=== PATIENT | female | born 1990 | race Caucasian/White ===

== ENCOUNTER 2020-07-20 09:41 | Outpatient (CLI) | payer MEDICAID, SELFPAY ==
--- NOTE | 2020-07-20 09:47 | NM_ITS ---
WS: [id number] NUCLEAR MEDICINE HIDA SCAN CLINICAL INFORMATION: ABD PAIN TECHNIQUE: Following intravenous administration of 7.6 mCi of technetium 99m mebrofenin, images of th e abdomen were obtained over the course of 60 minutes. Next, gallbladder ejection fraction was determ ined by obtaining preprandial and one-hour postprandial images of the gallbladder following oral ivett stion of Ensure. COMPARISON: None. FINDINGS: Normal hepatic uptake at 5 minutes. Gallbladder is visualized by 15 minutes. No evidence of acute cho lecystitis. Normal bile duct and small bowel activity. Normal hepatic excretion. No evidence of kailey docholithiasis. Gallbladder ejection fraction 75% within normal limits. No evidence of chronic cholecystitis. NM/NM hepatobiliary w phar* [id number] IMPRESSION: 1. No evidence of acute or chronic cholecystitis. 2. Normal gallbladder ejection fraction 75% within normal limits.
== END 2020-07-20 09:42 | disposition home or self-care (01) ==
LOC: NM 09:43
PROVIDERS: PCP Nurse Practitioner Family; Visit Provider Nurse Practitioner Family
DX: R10.9 Unspecified abdominal pain (principal)
CPT/HCPCS: 78227; A9537

== ENCOUNTER → 2020-09-05 09:20 | Outpatient (BNVA) | payer MEDICAID, SELFPAY | PROVIDERS: PCP Nurse Practitioner Family; Visit Provider Psychiatry & Neurology Psychiatry | DX: F41.1 Generalized anxiety disorder (principal) | CPT/HCPCS: 90792 ==

== ENCOUNTER → 2020-09-18 10:29 | Outpatient (BNVA) | payer MEDICAID, SELFPAY | PROVIDERS: PCP Nurse Practitioner Family; Visit Provider Social Worker | DX: F41.1 Generalized anxiety disorder (principal) | CPT/HCPCS: 90834 ==

== ENCOUNTER → 2020-10-02 09:45 | Outpatient (BNVA) | payer MEDICAID, SELFPAY | PROVIDERS: PCP Nurse Practitioner Family; Visit Provider Social Worker | DX: F41.1 Generalized anxiety disorder (principal) | CPT/HCPCS: 90834 ==

== ENCOUNTER → 2020-10-24 09:06 | Outpatient (BNVA) | payer MEDICAID, SELFPAY | PROVIDERS: PCP Nurse Practitioner Family; Visit Provider Psychiatry & Neurology Psychiatry | DX: F41.1 Generalized anxiety disorder (principal) | CPT/HCPCS: 99214 ==

== ENCOUNTER → 2020-12-08 08:23 | Outpatient (BNVA) | payer MEDICAID, SELFPAY | PROVIDERS: PCP Nurse Practitioner Family; Visit Provider Social Worker | DX: F41.1 Generalized anxiety disorder (principal) | CPT/HCPCS: 90834 ==

== ENCOUNTER → 2020-12-21 08:21 | Outpatient (BNVA) | payer MEDICAID, SELFPAY | PROVIDERS: PCP Nurse Practitioner Family; Visit Provider Social Worker | DX: F41.1 Generalized anxiety disorder (principal) | CPT/HCPCS: 90834 ==

== ENCOUNTER → 2021-01-04 10:32 | Outpatient (BNVA) | payer MEDICAID, SELFPAY | PROVIDERS: PCP Nurse Practitioner Family; Visit Provider Social Worker | DX: F41.1 Generalized anxiety disorder (principal) | CPT/HCPCS: 90834 ==

== ENCOUNTER → 2021-01-05 10:29 | Outpatient (BNVA) | payer MEDICAID, SELFPAY | PROVIDERS: PCP Nurse Practitioner Family; Visit Provider Psychiatry & Neurology Psychiatry | DX: F41.1 Generalized anxiety disorder (principal) | CPT/HCPCS: 99214 ==

== ENCOUNTER → 2021-05-17 07:15 | Outpatient (BNVA) | payer MEDICAID, SELFPAY | PROVIDERS: PCP Nurse Practitioner Family; Visit Provider Social Worker | DX: F41.1 Generalized anxiety disorder (principal) | CPT/HCPCS: 90834 ==

== ENCOUNTER → 2021-06-04 07:25 | Outpatient (BNVA) | payer MEDICAID, SELFPAY | PROVIDERS: PCP Nurse Practitioner Family; Visit Provider Social Worker | DX: F41.1 Generalized anxiety disorder (principal) | CPT/HCPCS: 90834 ==

== ENCOUNTER → 2021-06-11 08:10 | Outpatient (BNVA) | payer MEDICAID, SELFPAY | PROVIDERS: PCP Nurse Practitioner Family; Visit Provider Social Worker | DX: F41.1 Generalized anxiety disorder (principal) | CPT/HCPCS: 90834 ==

== ENCOUNTER → 2021-07-13 14:42 | Outpatient (BNVA) | payer MEDICAID, SELFPAY | PROVIDERS: PCP Nurse Practitioner Family; Visit Provider Counselor Professional | DX: F41.1 Generalized anxiety disorder (principal) | CPT/HCPCS: 90834 ==

== ENCOUNTER → 2021-08-20 07:52 | Outpatient (BNVA) | payer MEDICAID, SELFPAY | PROVIDERS: PCP Nurse Practitioner Family; Visit Provider Social Worker | DX: F41.1 Generalized anxiety disorder (principal) | CPT/HCPCS: 90834 ==

== ENCOUNTER 2021-08-20 10:29 | Emergency (ER) | payer MEDICAID, SELFPAY ==
[2021-08-20 10:49] VITALS: BP 128/81; PULSE 87; RESP 18; TEMP 37.3; O2SAT 97; BMI 34.4
--- NOTE | 2021-08-20 11:29 | XRR_ITS ---
PROCEDURE INFORMATION: Exam: XR Left Shoulder Exam date and time: 08/20/2021 11:58 AM Age: 31 years old Clinical indication: Pain and injury or trauma; Fall; Blunt trauma (contusions or hematomas); Left; Injury details: Fell down stairs. PT has pain all around the lt shoulder joint; Additional info: Injury/trauma; Pain TECHNIQUE: Imaging protocol: XR Left shoulder. Views: 2 or more views. COMPARISON: No relevant prior studies available. FINDINGS: Bones/joints: Negative for acute bony abnormality. Soft tissues: Normal. XR/XR shoulder LT min 2V* [id number] IMPRESSION: No acute findings.
--- NOTE | 2021-08-20 11:29 | ED_ITS ---
HPI - Fall General: Chief Complaint: Fall Stated Complaint: fall, left shoulder pain and face Time Seen by Provider: 08/20/21 11:13 Source: patient Mode of arrival: ambulatory Limitations: no limitations History of Present Illness: Patient is a 31-year-old female who presents to ED today with complaints of left shoulder pain. Patient states her 4 dogs were chasing a squirrel on one of her birdfeeders and states she got tripped up and fell directly onto the left shoulder. She does report striking her head and reports unknown LOC but states she feels completely normal now. She does not complain of a headache, dizziness, lightheadedness, visual changes, nausea/vomiting. She has no other physical complaints currently apart from the left shoulder pain. MD complaint: fall Onset (ago): hour(s) Fall from: standing Fall witnessed: no Place fall occurred: home Loss of consciousness: Unsure Prolonged down time: no Symptoms prior to fall: none Context: tripped/slipped Location of injury - extremities: Left: shoulder Severity: moderate Associated symptoms-after fall: Reports no associated symptoms; Denies abdominal pain, chest pain, confusion, difficulty walking, headache(s), lightheadedness or neck pain Review of Systems Eyes: Denies: change in vision, blurry vision, blind spots, photophobia, floaters or seeing flashes Card: Denies: chest pain, palpitations, lightheadedness, syncope or pre- syncope Resp: Denies: dyspnea GI: Denies: abdominal pain, nausea or vomiting Musc: Reports: joint pain (L shoulder); Denies: neck pain, back pain, extremity pain, extremity swelling, joint swelling, joint redness or joint warmth Neuro: Denies: headache(s), numbness in extremities, weakness in extremities, sensory changes, difficulty walking, dizziness, confusion, behavioral changes, Slurred speech present, difficulty communicating thoughts or seizure-like activity PFS ED PFSH: Medical History MARTA (generalized anxiety disorder) Social History Smoking and tobacco status: never smoked Alcohol intake: never Current gender identity: Female Physical Exam Const: COMMON NORMALS: no acute distress, patient oriented x3, no limitations and alert GENERAL APPEARANCE: cooperative NUTRITIONAL APPEARANCE: overweight ORIENTATION/CONSCIOUSNESS: Yes awake, Yes oriented to person, Yes oriented to place and Yes oriented to time HENMT: COMMON NORMALS: normocephalic and atraumatic HEAD & SCALP: normal to inspection, normocephalic and atraumatic FACE & SINUS: normal facial exam Neck/C-Spine: COMMON NORMALS: full ROM CERVICAL SPINE: No pain with cervical ROM, No Cervical spine tenderness, No step off deformity and No Paracervical muscle tenderness Chest: COMMONS NORMALS: normal inspection of the chest and normal palpation of entire chest wall Resp: COMMON NORMALS: normal respiratory effort and clear to auscultation bilaterally AUSCULTATION: clear to auscultation bilaterally Back/Pelvis: COMMON NORMALS: thoracic and lumbar spine normal to inspection, no thoracic nor lumbar tenderness and thoraco-lumbar ROM normal Extremity: GENERAL: Yes normal exam except as noted LEFT UPPER EXTREMITY: Yes shoulder joint Left shoulder joint: Yes palpation (TTP of anterior glenohumeral shoulder ), Yes ROM (limited secondary to pain) and Yes neurovascular exam (normal) Neuro: RICK COMA SCALE: document GCS findings Rick coma scale eye opening: Spontaneous [place] coma scale verbal response: Orientated [place] coma scale motor response: Obey commands Rick coma scale total score: 15 COMMON NORMALS: patient oriented x3, moves all extremities, no focal motor deficits and no sensory deficits noted SENSORIUM/ORIENTATION: Yes alert, Yes oriented to person, Yes oriented to place and Yes oriented to time Skin: TRAUMA: no lacerations or abrasions Course Vital Signs: Vital signs: Vital Signs Temperature 99.2 F 08/20/21 10:49 Pulse Rate 87 08/20/21 10:49 Respiratory Rate 18 08/20/21 10:49 Blood Pressure 128/81 08/20/21 10:49 Pulse Oximetry 97 08/20/21 10:49 MDM - Fall Medical Decision Making XRs negative. Will treat with sling x 48 hours, passive ROM, NSAIDS, steroids and follow up with PCP in 1-2 weeks if pain persists. Discharge Plan Discharge Patient Disposition: Home Clinical Impression: Injury of left shoulder Qualifiers: Encounter type: initial encounter Qualified Code(s): S49.92XA - Unspecified injury of left shoulder and upper arm, initial encounter Condition: Stable Prescriptions: New ibuprofen 800 mg tablet 800 mg PO Q8H PRN (Reason: pain) Qty: 20 0RF Medrol (Raman) 4 mg tablets,dose pack See Rx Instructions .ROUTE .COMPLEX Qty: 21 0RF Rx Instructions: orally per package directions Discontinued prednisone 20 mg tablet 40 mg PO DAILY 5 Days Qty: 10 0RF No Action clonidine HCl 0.1 mg tablet 0.1 mg PO .qhs 30 Days Qty: 30 3RF azithromycin [Zithromax Z-Raman] 250 mg tablet See Rx Instructions PO .COMPLEX Qty: 6 0RF Rx Instructions: take 500 mg today (day 1), then 250 mg for 4 days (days 2-5) PO Discharge Orders: Discharge ED (Routine); Ordered 08/20/21 Ordered By: Marva Campos Referrals: Rosa Hudson [Primary Care Provider] - Patient Instructions: Shoulder Sprain (ED) Stand Alone Forms: Work/School Release Coding Level of Care Code ED Screen Printing Machine Loader Unloader for Dillon Fwd Exam Comprehensive
== END 2021-08-20 12:30 | disposition home or self-care (01) ==
PROVIDERS: Emergency Provider Physician Assistant; PCP Nurse Practitioner Family
DX: S49.92XA Unspecified injury of left shoulder and upper arm, initial encounter (principal); W01.0XXA Fall on same level from slipping, tripping and stumbling without subsequent striking against object, initial encounter
CPT/HCPCS: 73030; 90834; 99282

== ENCOUNTER → 2021-09-04 08:09 | Outpatient (BNVA) | payer MEDICAID, SELFPAY | PROVIDERS: PCP Nurse Practitioner Family; Visit Provider Social Worker | DX: F41.1 Generalized anxiety disorder (principal) | CPT/HCPCS: 90834 ==

== ENCOUNTER → 2021-09-11 07:15 | Outpatient (BNVA) | payer MEDICAID, SELFPAY | PROVIDERS: PCP Nurse Practitioner Family; Visit Provider Social Worker | DX: F41.1 Generalized anxiety disorder (principal) | CPT/HCPCS: 90834 ==

== ENCOUNTER → 2021-09-27 07:33 | Outpatient (BNVA) | payer MEDICAID, SELFPAY | PROVIDERS: PCP Nurse Practitioner Family; Visit Provider Social Worker | DX: F41.1 Generalized anxiety disorder (principal); F33.9 Major depressive disorder, recurrent, unspecified | CPT/HCPCS: 90791 ==

== ENCOUNTER → 2021-10-03 11:50 | Outpatient (BNVA) | payer MEDICAID, SELFPAY | PROVIDERS: PCP Nurse Practitioner Family; Visit Provider Counselor Professional | DX: F41.1 Generalized anxiety disorder (principal) | CPT/HCPCS: 90847 ==

== ENCOUNTER → 2021-10-17 08:00 | Outpatient (BNVA) | payer MEDICAID, SELFPAY | PROVIDERS: PCP Nurse Practitioner Family; Visit Provider Social Worker | DX: F41.1 Generalized anxiety disorder (principal) | CPT/HCPCS: 90837; 90834 ==

== ENCOUNTER → 2021-10-29 07:34 | Outpatient (BNVA) | payer MEDICAID, SELFPAY | PROVIDERS: PCP Nurse Practitioner Family; Visit Provider Social Worker | DX: F41.1 Generalized anxiety disorder (principal) | CPT/HCPCS: 90837; 90834 ==

== ENCOUNTER → 2021-10-30 17:10 | Outpatient (BNVA) | payer MEDICAID, SELFPAY | PROVIDERS: PCP Nurse Practitioner Family; Visit Provider Psychiatry & Neurology Psychiatry | DX: F41.1 Generalized anxiety disorder (principal); G47.00 Insomnia, unspecified | CPT/HCPCS: 99214 ==

== ENCOUNTER 2022-04-17 18:19 | Emergency (ER) | payer MEDICAID, SELFPAY ==
[2022-04-17 18:51] VITALS: BMI 34.0
[2022-04-17 18:54] VITALS: BP 114/79; PULSE 82; RESP 16; TEMP 36.8; O2SAT 97
[2022-04-17 19:05] LABS: Add Urine Microscopic? YES; Bilirubin Urine Neg (Negative); Blood Urine 3+ (Negative); Glucose Urine UA Norm (Normal); Ketones Urine Negative (Negative); Leukocyte Esterase Urine Negative (Negative); Nitrate Urine Negative (Negative); Protein Urine Neg (Negative); Specific Gravity, Urine 1.005 (1.005-1.030); Urine Appearance Hazy (CLEAR); Urine Color Light Yellow (Yellow); Urobilinogen Urine Neg (Negative); pH Urine 6.5 (5-7)
[2022-04-17 19:09] LABS: Add Urine Culture? No; RBC Urine 0-4 /hpf (0-2); Squamous Epithelial Cell Urine RARE /hpf (0-5)
== END 2022-04-17 19:30 | disposition left against medical advice (07) ==
PROVIDERS: Emergency Medicine; Emergency Provider Family Medicine; PCP Family Medicine
DX: Z53.21 Procedure and treatment not carried out due to patient leaving prior to being seen by health care provider (principal)
CPT/HCPCS: 81001

== ENCOUNTER → 2022-11-21 11:49 | Outpatient (BNVA) | payer OTHER, SELFPAY | PROVIDERS: PCP Family Medicine; Visit Provider Nurse Practitioner | DX: F41.1 Generalized anxiety disorder (principal) | CPT/HCPCS: 80061; 83036 ==

== ENCOUNTER → 2023-02-11 10:39 | Outpatient (BNVA) | payer MEDICAID, SELFPAY ==
[2022-12-11 16:44] VITALS: BP 140/90; BMI 35.1
== END ==
PROVIDERS: PCP Family Medicine; Referring Provider Family Medicine; Visit Provider Surgery
DX: K64.9 Unspecified hemorrhoids (principal)
CPT/HCPCS: 99203

== ENCOUNTER 2023-04-02 06:14 | Day surgery (SDC) | payer MEDICAID, SELFPAY ==
[2022-12-11 16:44] VITALS: BP 140/90; BMI 35.1
[2023-04-02] VITALS (11 sets, daily range): BP systolic 95–146; BP diastolic 66–106; PULSE 84–101; RESP 16–18; TEMP 36.2–36.7; O2SAT 97–100; BMI 35.6
[2023-04-02] MEDS: sodium chloride 0.9% 1,000 ML 30 ML IV (06:39)
[2023-04-02] MEDS: metroNIDAZOLE IV 500 MG/100 ML PREMIX 100 MG IV (06:40)
--- NOTE | 2023-04-02 06:53 | P.HP_ITS ---
Same Day Surgery H&P Indication for Procedure/HPI DATE OF PROCEDURE: April 02, 2023 CHIEF COMPLAINT/INDICATIONFOR SURGICAL PROCEDURE: hemorrhoids PREOP DIAGNOSIS: hemorrhoids PLANNED PROCEDURE: Operation Date: 04/02/23 07:00 Proposed Procedures p [id number] [id number] hemorrhoidectomy with exam under anesthesia K64.9(Not Applicable) - Adam Hill MD s Exam Under Anesthesia(Not Applicable) - Adam Hill MD Medications/Allergies* Home Medications Medication Instructions Recorded Confirmed Type amoxicillin 875 mg tablet 875 mg PO BID 04/01/23 04/01/23 History sertraline 50 mg tablet (Zoloft) 50 mg PO DAILY PRN Anxiety 04/01/23 04/01/23 History Allergies/Adverse Reactions Allergy/AdvReac Type Severity Reaction Status Date / Time No Known Allergies Allergy Verified 02/11/23 11:20 Current Medications: Generic Name Dose Route Start Last Admin Trade Name Freq PRN Reason Stop Dose Admin Metronidazole 500 mg in 100 mls @ 100 mls/hr 04/02/23 06:19 04/02/23 06:40 Flagyl Iv IV 04/02/23 07:18 100 mls/hr GRE[place] PICKER ONE Administration Protocol Sodium Chloride 1,000 mls @ 30 mls/hr 04/02/23 06:30 04/02/23 06:39 Sodium Chloride 0.9% IV 04/03/23 06:29 30 mls/hr .Q24H RICHARD Administration Pertinent History/Comorbid Conditions* Medical History (Updated 04/22/22 @ 11:23 by Angy Álvarez) Acute viral syndrome Dental abscess MARTA (generalized anxiety disorder) Insomnia Psychiatric care Family History (Updated 11/21/22 @ 11:55 by Krystin Cesar MS, [facility]) MARTA (generalized anxiety disorder) Diabetes CAD (coronary artery disease) Psychiatric illness Cancer Hypertension Social History Smoking and tobacco/nicotine status: former use of tobacco/nicotine Second hand smoke exposure: No Alcohol intake: current Alcohol intake frequency: holidays/special occasions only Substance/Drug Use: former Date of last use: 2016 Adopted: No Caregiver/support person: No Lives independently: Yes Household members: children Housing: Manufactured/Mobile home Marital status: Marital status details: 2013 Number of children: 1 Number of grandchildren: 0 Highest education level completed: Some College, No Degree service: No Current occupational status: disabled Pets and animals: Yes Pets & animals: cat(s), dog(s) and farm animals Farm Animals: chicken/turkey/other poultry Leisure activites: other Leisure activities details: takes care of everyone and doesn't have leisure time Sexually active: Yes (polyamorous) Are you practicing safe sex: No Do you think of yourself as: Straight/Heterosexual Current gender identity: Female Dejah/Denominational: Serrano Special dejah needs: No Agree to transfusion: Yes Pertinent Exam Findings alert, oriented x 3, clear to auscultation bilaterally, regular rate & rhythm and operative site marked Recommendations Surgery/Procedure today Coding Level of Care Code Acute Code for Chg Fwd Diagnoses
[2023-04-02] MEDS: scopolamine 1.5 Patch 1 PATCH TRANSDERMA (06:58)
[2023-04-02] MEDS: ceFAZolin 2,000 MG in sodium chloride 0.9% (plus) 50 ML 100 MG IV (07:03)
[2023-04-02] MEDS: BUPivacaine 0.25% INJ 10 mL INJECTION (07:47)
[2023-04-02] MEDS: lidocaine-epi 1% 20 mL INJ INJECTION (07:48)
--- NOTE | 2023-04-02 07:48 | ANES.PREANE2 ---
Pre-Anesthetic Assessment Height/Weight: Height 1.7 m Weight 103.419 kg Temp Pulse Resp BP Pulse Ox O2 Del Method 97.2 F L 95 16 128/82 98 Room Air 04/02/23 06:24 04/02/23 06:24 04/02/23 06:24 04/02/23 06:24 04/02/23 06:24 04/02/23 06:25 Preop Diagnosis: hemorrhoids Operation Date: 04/02/23 07:00 Proposed Procedures p [id number] hemorrhoidectomy with exam under anesthesia K64.9(Not Applicable) - Adam Hill MD s Exam Under Anesthesia(Not Applicable) - Adam Hill MD Familial anesthetic complications: none Was Beta Rey taken within 24 hours: N/A Was Clonidine taken within 24 hours: N/A Last intake: Intake Last Liquid Date 04/01/23 Last Liquid Time 18:00 Last Solid Date 04/01/23 Last Solid Time 18:00 Social No alcohol and No tobacco Smokes max Exam alert, oriented x 3, clear to auscultation bilaterally and regular rate & rhythm Airway Submandibular: within normal limits Cervical ROM: within normal limits Mallampati: Class II Dentition: full Metabolic Morbid Obesity Neuropsych Anxiety and Depression Anesthetic Plan ASA status: 2 Anesthesia: General Medications/Allergies Home Medications Medication Instructions Recorded Confirmed Last Taken Type propranolol 10 mg tablet 10 mg PO TID PRN anxiety 30 days 06/10/22 04/01/23 04/01/23 07:00 Rx #90 tabs zolpidem 5 mg tablet 5 mg PO .qhs 30 days #30 tabs 06/10/22 04/01/23 Unknown Rx amoxicillin 875 mg tablet 875 mg PO BID 04/01/23 04/01/23 04/01/23 History sertraline 50 mg tablet (Zoloft) 50 mg PO DAILY PRN Anxiety 04/01/23 04/01/23 Unknown History Allergies Allergy/AdvReac Type Severity Reaction Status Date / Time No Known Allergies Allergy Verified 02/11/23 11:20 Current Medications Generic Name Dose Route Start Last Admin Trade Name Freq PRN Reason Stop Dose Admin Sodium Chloride 1,000 mls @ 30 mls/hr 04/02/23 06:30 04/02/23 06:39 Sodium Chloride 0.9% IV 04/03/23 06:29 30 mls/hr .Q24H RICHARD Administration PFSH Anesthesia Medical History Acute viral syndrome Dental abscess MARTA (generalized anxiety disorder) Insomnia Psychiatric care Family History Other CAD (coronary artery disease) Cancer Diabetes MARTA (generalized anxiety disorder) Hypertension Psychiatric illness Social History Smoking and tobacco/nicotine status: former use of tobacco/nicotine Second hand smoke exposure: No Alcohol intake: current Alcohol intake frequency: holidays/special occasions only Substance/Drug Use: former Date of last use: 2016 Adopted: No Caregiver/support person: No Lives independently: Yes Household members: children Housing: Manufactured/Mobile home Marital status: Marital status details: 2013 Number of children: 1 Number of grandchildren: 0 Highest education level completed: Some College, No Degree service: No Current occupational status: disabled Pets and animals: Yes Pets & animals: cat(s), dog(s) and farm animals Farm Animals: chicken/turkey/other poultry Leisure activites: other Leisure activities details: takes care of everyone and doesn't have leisure time Sexually active: Yes (polyamorous) Are you practicing safe sex: No Do you think of yourself as: Straight/Heterosexual Current gender identity: Female Dejah/Zoroastrianism: S[place]ano Special dejah needs: No Agree to transfusion: Yes Female Reproductive History Date of last menstrual period: 03/29/23 Para: 1 Spontaneous abortions: Yes (8 + has had 2 stillborn's) Data Anesthesia Cardiac Studies: No Data to Display
--- NOTE | 2023-04-02 08:22 | PM.OP ---
Operative Report Date of procedure: April 02, 2023 Pre-op diagnosis: Hemorrhoids grade IV Post-op diagnosis: Same Procedure done: Exam under anesthesia, excision of hemorrhoids and perianal skin tag Specimens removed/disposition: Hemorrhoids Surgeon: Adam Hill MD Sweeping Compound Blender: LORENE OR Staff Estimated blood loss: 10 Complications: none Findings: Number grade 4 internal hemorrhoids of the anterior and bilateral posterolateral columns, a posterior anal skin tag was also noted. Brief History: 32-year-old female with longstanding history of hemorrhoids who has failed nonoperative management presented to my clinic for evaluation for possible hemorrhoidectomy, after discussion of all the risk and benefits as documented on my preop note we decided to proceed with excisional hemorrhoidectomy. Procedure: Patient was brought into the OR, she was intubated, she was then positioned on the prone jackknife position. The perianal region was prepped and draped in the usual sterile fashion, timeout was conducted. I then proceeded with a exam under anesthesia, digital rectal exam was consistent with hemorrhoids no additional pathology identified, on the visual inspection of the anal canal there is evidence of anterior and bilateral posterior or lateral column hemorrhoids being the right posterolateral colon diabetes. On the posterior anal margin there was a small skin tag measuring about 5 mm. Hill-De Los Santos retractor was inserted into the anal canal to expose the right posterior lateral hemorrhoidal column. I then used the Allis clamp to elevated Moradian plexus at the level of the mucocutaneous junction with #3 oh Good chromic I then proceeded to ligate the base of the hemorrhoidal plexus with a [id number] suture, I give the suture attached to patient in order to close the mucosa after excision. I then proceeded with excision of the hemorrhoidal column, starting at the level of the skin of the anal margin, I did a V shape incision under the hemorrhoid, taking careful consideration of not injuring the internal anal sphincter. The dissection was carried down with blunt retraction of the fibers from the hemorrhoidal plexus as well as Metzenbaum. Once the dissection was carried all the way down to the area where the plexus was ligated I then proceeded to transect the hemorrhoidal plexus. The hemorrhoid was passed to the table to be sent for specimen to pathology, with the #3-0 chromic that was used to ligate the hemorrhoidal plexus I then proceeded to close the mucosa from the area of ligation to the skin, taking careful consideration of recreating the mucocutaneous junction. Hemostasis was verified. The same procedure was then repeated on the anterior and left posterolateral columns without significant complications. The posterior skin tag was then excised using Metzenbaum scissor and the skin was closed with a #3-0 chromic. At the end of the excisional portion of the procedure I replaced the Hill-De Los Santos retractor into the anal canal to ensure that no stenosis was found, adequate the space between the resected colon was well as noted on the mucosa. Hemostasis was noted. I then placed Surgifoam soaked in thrombin into the anal canal for hemostasis and placed a 2% lidocaine gel into the anal canal. Sterile dressing was applied and the mesh underwear was placed. At the end of the procedure all counts were correct, the patient was extubated without complications and transferred to the PACU in stable condition.
[2023-04-02] MEDS: meperidine 50 mg/mL INJ 12.5 MG IVP (08:30)
--- NOTE | 2023-04-02 09:51 | ANE.PACU2 ---
Inpatient post-anesthesia follow up: Airway intact: Yes Vital signs: Temperature 98.0 F Pulse Rate 84 Respiratory Rate 18 Blood Pressure 123/74 Pulse Oximetry 97 Oxygen Delivery Me thod Room Air Oxygen Flow Rate 6 Fraction of Inspir ed Oxygen Hydration adequate: Yes Nausea and vomiting: No Pain level: 3 Mental status: Baseline
== END 2023-04-02 09:50 | disposition home or self-care (01) ==
PROVIDERS: Surgery; PCP Family Medicine; Visit Provider Surgery
PROC: (CPT 46250; principal; 2023-04-02 07:00)
PROC: (CPT 46250; 2023-04-02 07:00)
DX: K64.3 Fourth degree hemorrhoids (principal); K64.4 Residual hemorrhoidal skin tags; E66.01 Morbid (severe) obesity due to excess calories; Z68.35 Body mass index [BMI] 35.0-35.9, adult; Z87.891 Personal history of nicotine dependence
CPT/HCPCS: 46250; 88304; J0690; J1100; J2175; J2250; J2405; J2704; J2710; J3010; J3490; J7030

== ENCOUNTER → 2023-04-15 07:47 | Outpatient (BNVA) | payer MEDICAID, SELFPAY ==
[2022-12-11 16:44] VITALS: BP 140/90; BMI 35.1
== END ==
PROVIDERS: PCP Family Medicine; Visit Provider Surgery
DX: Z98.890 Other specified postprocedural states (principal)
CPT/HCPCS: 99024

== ENCOUNTER → 2023-04-29 08:59 | Outpatient (BNVA) | payer MEDICAID, SELFPAY ==
[2022-12-11 16:44] VITALS: BP 140/90; BMI 35.1
== END ==
PROVIDERS: PCP Family Medicine; Visit Provider Surgery
DX: Z98.890 Other specified postprocedural states (principal)
CPT/HCPCS: 99024

== ENCOUNTER 2023-09-04 15:38 | Emergency (ER) | payer MEDICAID, SELFPAY ==
[2022-12-11 16:44] VITALS: BP 140/90; BMI 35.1
[2023-09-04 15:42] VITALS: BP 130/82; PULSE 99; RESP 17; TEMP 36.8; O2SAT 97; BMI 34.4
--- NOTE | 2023-09-04 16:01 | XRR_ITS ---
PROCEDURE INFORMATION: Exam: XR Left Elbow Exam date and time: 09/04/2023 4:08 PM Age: 33 years old Clinical indication: Injury or trauma; Fall; Blunt trauma (contusions or hematomas); Elbow; Left; Additional info: Fall injury TECHNIQUE: Imaging protocol: Radiologic exam of the left elbow. Views: 3 or more views. COMPARISON: CR XR shoulder LT min 2V* [id number] 08/20/2021 11:58 AM FINDINGS: Bones/joints: Normal. Soft tissues: Normal. XR/XR elbow LT min 3V* [id number] IMPRESSION: No acute findings.
--- NOTE | 2023-09-04 16:01 | XRR_ITS ---
PROCEDURE INFORMATION: Exam: XR Left Wrist Exam date and time: 09/04/2023 4:11 PM Age: 33 years old Clinical indication: Injury or trauma; Fall; Blunt trauma (contusions or hematomas); Wrist; Left TECHNIQUE: Imaging protocol: Radiologic exam of the left wrist. Views: 3 or more views. COMPARISON: CR XR elbow LT min 3V* [id number] 09/04/2023 4:08 PM FINDINGS: Bones/joints: Normal. Soft tissues: Normal. XR/XR wrist LT min 3V* [id number] IMPRESSION: No acute findings.
--- NOTE | 2023-09-04 16:01 | W.ED.EXTPRO ---
HPI - Extremity Problem General: Chief complaint: Extremity Injury, Upper Stated complaint: L wrist injury Time Seen by Provider: 09/04/23 16:00 History of Present Illness: 33-year-old female comes in today with left forearm injury. Patient was trying to catch a toddler from going off the porch and slipped falling and landing on her left arm. Patient has pain and discomfort from the elbow to the wrist. No obvious deformity is noted. Review of Systems General: Reports: 10 or more systems reviewed and unremarkable except in HPI and below PFSH ED PFSH: Medical History (Updated 09/04/23 @ 16:29 by AYLA Culver) Chronic post-traumatic stress disorder (PTSD) Psychiatric care Insomnia Acute viral syndrome Dental abscess MARTA (generalized anxiety disorder) Surgical History (Updated 08/27/23 @ 09:18 by Everardo Baez MD) History of tympanostomy tube placement Hx of wisdom tooth extraction Hx of hemorrhoidectomy 04/02/23 Dr Hill Exam under anesthesia, excision of hemorrhoids and perianal skin tag Family History Other CAD (coronary artery disease) Cancer Diabetes MARTA (generalized anxiety disorder) Hypertension Psychiatric illness Social History (Updated 08/27/23 @ 09:34 by Everardo Baez MD) Smoking and tobacco/nicotine status: former use of tobacco/nicotine Quit status (tobacco/nicotine): has quit using Year quit tobacco: 2016 Former quit date comment: 1PY Second hand smoke exposure: No Alcohol intake: current Alcohol intake frequency: holidays/special occasions only Substance/Drug Use: former Former substance use 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 Adopted: No Caregiver/support person: No Lives independently: Yes Household members: children Housing: Manufactured/Mobile home Marital status: Marital status details: 2013 Number of children: 1 Number of grandchildren: 0 Highest education level completed: Some College, No Degree service: No Current occupational status: disabled Pets and animals: Yes Pets & animals: cat(s), dog(s) and farm animals Farm Animals: chicken/turkey/other poultry Leisure activites: other Leisure activities details: takes care of everyone and doesn't have leisure time Sexually active: Yes (polyamorous) Are you practicing safe sex: No Do you think of yourself as: Straight/Heterosexual Current gender identity: Female Dejah/Buddhism: [place] Special dejah needs: No Agree to transfusion: Yes Female Reproductive History: Para: 1 Spontaneous abortions: Yes (8 + has had 2 stillborn's) Physical Exam Const: COMMON NORMALS: alert Neck/C-Spine: COMMON NORMALS: full ROM Resp: COMMON NORMALS: normal respiratory effort Cardio: COMMON NORMALS: regular rate RATE: regular rate Back/Pelvis: COMMON NORMALS: thoracic and lumbar spine normal to inspection Extremity: LEFT UPPER EXTREMITY: Yes elbow joint (Normal range of motion nontender) Left elbow: Yes inspection, Yes palpation, Yes ROM and Yes neurovascular exam and Yes wrist (Normal range of motion radial tenderness) Left wrist: Yes inspection, Yes palpation, Yes ROM and Yes neurovascular exam Neuro: SENSORIUM/ORIENTATION: Yes alert Skin: COMMON NORMALS: turgor normal GENERAL SKIN EXAM: turgor normal Course Vital Signs: Vital signs: Vital Signs Temperature 98.3 F 09/04/23 15:42 Pulse Rate 99 09/04/23 15:42 Respiratory Rate 17 09/04/23 15:42 Blood Pressure 130/82 09/04/23 15:42 Pulse Oximetry 97 09/04/23 15:42 Oxygen Delivery Me thod Room Air 09/04/23 15:42 MDM - Extremity (Nontraumatic) Medical Decision Making Patient presents with injury to the left forearm. On exam patient has no obvious deformity minimal to no swelling. No bruising. Normal range of motion is noted. Minimal tenderness is noted to the wrist. Differential diagnosis includes dislocation, fracture, sprain. X-rays noted no abnormality. Believe patient most likely has a wrist sprain and possible contusion of the forearm. Recommend activity as tolerated and follow-up with primary care. Patient reported understanding and agreed to plan. All radiology interpretation(s) finalized by discharge Discharge Plan Discharge Patient Disposition: Home Clinical Impression: Contusion of forearm, left Qualifiers: Encounter type: initial encounter Qualified Code(s): S50.12XA - Contusion of left forearm, initial encounter Condition: Stable Prescriptions: No Action propranolol 10 mg tablet See Rx Instructions PO TID PRN (Reason: anxiety) 30 Days Qty: 90 2RF Rx Instructions: 10mg tablet BID, can take additional 10mg at noon on PRN basis. Zoloft 50 mg tablet 50 mg PO DAILY PRN (Reason: Anxiety) Qty: 30 1RF zolpidem 5 mg tablet 5 mg PO .qhs 30 Days Qty: 30 1RF Discharge Orders: Discharge ED (Routine); Ordered 09/04/23 Ordered By: Justin George Referrals: Everardo Baez MD [Primary Care Provider] - Discharge Diet: Usual diet Discharge Activity: Increase activity as tolerated Patient Instructions: Musculoskeletal Pain (ED) Activity Restrictions/Additional Instructions: Activity as tolerated. Gentle stretching range of motion exercises. Use ice or heat to help with pain. Use acetaminophen and ibuprofen for further pain relief. Follow-up with primary care and 5 to 7 days for recheck. Return to ED for new concerns. Coding Level of Care Code ED Head End Desizing Machine Operator for Dillon Carter
== END 2023-09-04 16:38 | disposition home or self-care (01) ==
PROVIDERS: Emergency Provider Nurse Practitioner Family; PCP Family Medicine
DX: S50.12XA Contusion of left forearm, initial encounter (principal); Z87.891 Personal history of nicotine dependence; W01.0XXA Fall on same level from slipping, tripping and stumbling without subsequent striking against object, initial encounter
CPT/HCPCS: 73080; 73110; 99283

== ENCOUNTER 2024-03-02 10:49 | Emergency (ER) | payer MEDICAID, SELFPAY ==
[2022-12-11 16:44] VITALS: BP 140/90; BMI 35.1
[2024-03-02 11:02] VITALS: BP 126/74; PULSE 90; RESP 16; TEMP 36.8; O2SAT 97; BMI 33.6
--- NOTE | 2024-03-02 11:57 | W.ED.WOUNDLC ---
HPI - Wound/Laceration General: Chief Complaint: Wound/Laceration Stated Complaint: Lac to Heel Time Seen by Provider: 03/02/24 11:01 History of Present Illness: 33-year-old female presents emergency room via EMS she has a laceration on the posterior aspect of her right heel. Overlying the distal portion of the Achilles tendon this occurred while she was cleaning out a chicken coop and a piece of metal caught on the back of her foot. She unsure of her last tetanus shot. No other injuries she did not fall Related Data Previous Rx's Medication Instructions Recorded propranolol 10 mg tablet See Rx Instructions PO TID PRN 08/27/23 anxiety 30 days #90 tabs sertraline 50 mg tablet (Zoloft) 50 mg PO DAILY PRN Anxiety #30 tabs 08/27/23 zolpidem 5 mg tablet 5 mg PO .qhs 30 days #30 tabs 08/27/23 mupirocin 2 % topical ointment 1 applic topical BID #15 grams 03/02/24 Allergies Allergy/AdvReac Type Severity Reaction Status Date / Time No Known Allergies Allergy Verified 12/17/23 09:39 PFS ED PFSH: Medical History Chronic post-traumatic stress disorder (PTSD) Psychiatric care Insomnia Acute viral syndrome Dental abscess MARTA (generalized anxiety disorder) Surgical History History of tympanostomy tube placement Hx of wisdom tooth extraction Hx of hemorrhoidectomy 04/02/23 Dr Hill Exam under anesthesia, excision of hemorrhoids and perianal skin tag Family History Other CAD (coronary artery disease) Cancer Diabetes MARTA (generalized anxiety disorder) Hypertension Psychiatric illness Social History Smoking and tobacco/nicotine status: former use of tobacco/nicotine Quit status (tobacco/nicotine): has quit using Year quit tobacco: 2016 Former quit date comment: 1PY Second hand smoke exposure: No Alcohol intake: current Alcohol intake frequency: holidays/special occasions only Substance/Drug Use: former Former substance use 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 Adopted: No Caregiver/support person: No Lives independently: Yes Household members: children Housing: Manufactured/Mobile home Marital status: Marital status details: 2013 Number of children: 1 Number of grandchildren: 0 Highest education level completed: Some College, No Degree service: No Current occupational status: disabled Pets and animals: Yes Pets & animals: cat(s), dog(s) and farm animals Farm Animals: chicken/turkey/other poultry Leisure activites: other Leisure activities details: takes care of everyone and doesn't have leisure time Sexually active: Yes (polyamorous) Are you practicing safe sex: No Do you think of yourself as: Straight/Heterosexual Current gender identity: Female Dejah/Latter Day: [place] Special dejah needs: No Agree to transfusion: Yes Female Reproductive History: Para: 1 Spontaneous abortions: Yes (8 + has had 2 stillborn's) Physical Exam Narrative: EXAM NARRATIVE: Full-thickness laceration overlying the Achilles tendon distally Achilles tendon is palpably intact on examination the depth of the wound does not reach the level of the tendon itself and there is no tendon involvement it cannot be visualized. Procedures Laceration Laceration 1: Site: lower extremity Side (If applicable): right Size (cm): 4 Description: linear Depth: simple, single layer Local Anesthetic: lidocaine 1% Amount of anesthesia used (mL): 4 Pre-repair: wound explored, irrigated extensively and deep structures intact Skin layer closed with: other (Prolene) Size (cm): 4-0 Number of sutures: 1 Technique: running Course Vital Signs: Vital signs: Vital Signs Temperature 98.3 F 03/02/24 11:02 Pulse Rate 88 03/02/24 12:39 Respiratory Rate 18 03/02/24 12:39 Blood Pressure 122/70 03/02/24 12:39 Pulse Oximetry 97 03/02/24 12:39 Oxygen Delivery Me thod Room Air 03/02/24 11:02 MDM - Wound/Laceration Medical Decision Making 1 close without difficulty and expiration I wonder does not extend down to the Achilles tendon Achilles tendon is palpably intact cannot visualize through the wound. Wound care instructions given apply topical antibiotic ointment to the wound twice a day. Sutures out in 10 days. No radiology studies performed this visit Discharge Plan Discharge Patient Disposition: Home Clinical Impression: Laceration Condition: Stable Prescriptions: New mupirocin 2 % ointment 1 applic topical BID Qty: 15 0RF No Action propranolol 10 mg tablet See Rx Instructions PO TID PRN (Reason: anxiety) 30 Days Qty: 90 2RF Rx Instructions: 10mg tablet BID, can take additional 10mg at noon on PRN basis. Zoloft 50 mg tablet 50 mg PO DAILY PRN (Reason: Anxiety) Qty: 30 1RF zolpidem 5 mg tablet 5 mg PO .qhs 30 Days Qty: 30 1RF Discharge Orders: Discharge ED (Routine); Ordered 03/02/24 Ordered By: Harinder Crowley Referrals: Everardo Baez MD [Primary Care Provider] - Discharge Diet: Usual diet Discharge Activity: Increase activity as tolerated Patient Instructions: Opioid Safety, Pain Management Activity Restrictions/Additional Instructions: Thank you for choosing [facility] for your healthcare needs today. It is very important that you follow up as instructed or that you return to the Emergency Department should you have concerns or if your condition changes or worsens in any way. You are seen in the emergency room after laceration to your ankle. Laceration was full-thickness through the skin but did not involve the Achilles tendon. Sutures were placed recommend these to be removed in 10 days. Apply topical antibiotic ointment to the wound twice a day. Coding Level of Care Code ED Jailer/Training Officer for Dillon Carter
[2024-03-02] MEDS: ceFAZolin 1,000 mg SDV 1000 MG IVP (12:09)
[2024-03-02] MEDS: tetanus-dipt-pertussis 0.5 mL SDV IM (12:09)
[2024-03-02 12:39] VITALS: BP 122/70; PULSE 88; RESP 18; O2SAT 97
== END 2024-03-02 12:51 | disposition home or self-care (01) ==
PROVIDERS: Emergency Provider Family Medicine; PCP Family Medicine
DX: S91.311A Laceration without foreign body, right foot, initial encounter (principal); W26.8XXA Contact with other sharp object(s), not elsewhere classified, initial encounter; Z87.891 Personal history of nicotine dependence
CPT/HCPCS: 12002; 90471; 90715; 96374; 99285; J0690

== ENCOUNTER → 2024-08-16 15:33 | Outpatient (BNVA) | payer MEDICAID, SELFPAY ==
[2022-12-11 16:44] VITALS: BP 140/90; BMI 35.1
== END ==
PROVIDERS: PCP Family Medicine; Visit Provider Family Medicine
DX: E66.9 Obesity, unspecified (principal)
CPT/HCPCS: 85025

== ENCOUNTER → 2024-08-17 08:27 | Outpatient (BNVA) | payer MEDICAID, SELFPAY ==
[2022-12-11 16:44] VITALS: BP 140/90; BMI 35.1
== END ==
PROVIDERS: PCP Family Medicine; Visit Provider Family Medicine
DX: E66.9 Obesity, unspecified (principal)
CPT/HCPCS: 80053; 80061; 83036; 84439; 84443; 85025

== ENCOUNTER 2024-09-19 17:44 | Emergency (ER) | payer MEDICAID, SELFPAY ==
[2022-12-11 16:44] VITALS: BP 140/90; BMI 35.1
[2024-09-19 17:46] VITALS: BP 118/74; PULSE 101; RESP 16; TEMP 36.6; O2SAT 97; BMI 35.0
--- NOTE | 2024-09-19 17:54 | CTR_ITS ---
PROCEDURE INFORMATION: Exam: CT Abdomen And Pelvis With Contrast Exam date and time: 09/19/2024 6:45 PM Age: 34 years old Clinical indication: Nausea and vomiting; Abdominal pain; Prior surgery; Surgery date: 6+ months; Surgery type: Hemorrhoidectomy; Diffuse abd pain with n/v TECHNIQUE: Imaging protocol: Computed tomography of the abdomen and pelvis with contrast. Radiation optimization: All CT scans at this facility use at least one of these dose optimization techniques: automated exposure control; mA and/or kV adjustment per patient size (includes targeted exams where dose is matched to clinical indication); or iterative reconstruction. Contrast material: OMNI 350; Contrast volume: 100 ml; Contrast route: INTRAVENOUS (IV); COMPARISON: 1. NM hepatobiliary w phar* [id number] 07/20/2020 9:[address] abdomen pelvis w con* [id number] 09/16/2014 3:41 PM RADIATION DOSE METRICS: Total DLP (mGy-cm): 961.96 FINDINGS: Lungs: Mild dependent changes in the posterior lower lobes. Heart: Heart size is within normal limits. There is no pericardial effusion or pericardial thickening. Liver: The liver is normal. No hepatic masses are identified. Gallbladder and biliary ducts: The gallbladder is normal. There is no ductal dilatation. Pancreas: The pancreas is normal. Spleen: 6 mm low-density lesion within the spleen is too small to characterize likely small cyst. The lesion may be slightly increased in size compared to 2014. Spleen is otherwise normal. Adrenal glands: The adrenal glands are normal. Kidneys and ureters: There is normal enhancement of the kidneys. No renal calcifications are identified. There is no hydronephrosis. Stomach and bowel: Nonspecific fatty infiltration of the right colon. There is no large or small bowel obstruction. There is no evidence of bowel wall thickening. Appendix: A normal appendix is identified. Intraperitoneal space: No inflammatory changes are identified. There is no free fluid or fluid collection seen. There is no pneumoperitoneum. Vasculature: The aorta is normal in course and caliber. No significant atherosclerotic calcifications are present. Lymph nodes: No enlarged lymph nodes are identified. Urinary bladder: The bladder is unremarkable. Reproductive: The uterus is present. Bones/joints: No acute osseous abnormalities are seen. Soft tissues: The soft tissues are within normal limits. CT/CT abdomen pelvis w con* [id number] IMPRESSION: No acute intra-abdominal or pelvic process.
[2024-09-19] MEDS: metoclopramide 5 mg/mL SDV 2 mL 10 MG IVP (18:10)
[2024-09-19] MEDS: diphenhydrAMINE 50 mg/mL SDV 1mL IVP (18:10)
[2024-09-19 18:11] VITALS: BP 148/98; PULSE 94; O2SAT 99
--- NOTE | 2024-09-19 18:12 | W.ED.NAVMDI ---
HPI - Nausea/Vomiting/Diarrhea General: Chief complaint: Nausea/Vomiting/Diarrhea Stated complaint: anxiety; n/v Time Seen by Provider: 09/19/24 17:51 Source: patient Mode of arrival: ambulatory Limitations: no limitations History of Present Illness: 34-year-old female who states she has been having nausea vomiting throughout the day along with some abdominal cramping she is on semaglutide had some issues vomiting the past states her pain is diffuse rates it a 6 out of 10 denies any diarrhea denies any worse improved factors Associated nausea: Yes Associated symtoms: Reports nausea; Denies chest pain, dysuria or headache(s) Related Data Previous Rx's ?Medication ?Instructions ?Recorded propranolol 10 mg tablet See Rx Instructions PO TID PRN 08/16/24 anxiety 30 days #90 tabs sertraline 50 mg tablet (Zoloft) 50 mg PO DAILY PRN Anxiety #30 tabs 08/16/24 zolpidem 5 mg tablet 5 mg PO .qhs 30 days #30 tabs 08/16/24 ondansetron 4 mg disintegrating 4 mg PO Q6H PRN nausea and 09/19/24 tablet vomiting #14 tabs Allergies Allergy/AdvReac Type Severity Reaction Status Date / Time No Known Allergies Allergy Verified 08/16/24 14:46 Review of Systems Const: Denies: fever(s), chills, body aches or change in appetite ENMT: Denies: throat pain or dental pain Card: Denies: chest pain Resp: Denies: dyspnea GI: Reports: abdominal pain, nausea and vomiting; Denies: diarrhea : Denies: dysuria Musc: Denies: neck pain or back pain Skin/Breast: Denies: rash Neuro: Denies: headache(s) PFSH ED PFSH: Medical History Obesity (BMI 35.0-39.9 without comorbidity) Chronic post-traumatic stress disorder (PTSD) Psychiatric care Insomnia Acute viral syndrome Dental abscess MARTA (generalized anxiety disorder) Surgical History History of tympanostomy tube placement Hx of wisdom tooth extraction Hx of hemorrhoidectomy 04/02/23 Dr Hill Exam under anesthesia, excision of hemorrhoids and perianal skin tag Family History Other CAD (coronary artery disease) Cancer Diabetes MARTA (generalized anxiety disorder) Hypertension Psychiatric illness Social History Smoking and tobacco/nicotine status: current every day tobacco/nicotine user (marijuana) Quit status (tobacco/nicotine): has quit using Year quit tobacco: 2016 Former quit date comment: 1PY Second hand smoke exposure: No Alcohol intake: current Alcohol intake frequency: holidays/special occasions only Substance/Drug Use: former Former substance use 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 Adopted: No Caregiver/support person: No Lives independently: Yes Household members: children Housing: Manufactured/Mobile home Marital status: Marital status details: 2013 Number of children: 1 Number of grandchildren: 0 Highest education level completed: Some College, No Degree service: No Current occupational status: disabled Pets and animals: Yes Pets & animals: cat(s), dog(s) and farm animals Farm Animals: chicken/turkey/other poultry Leisure activites: other Leisure activities details: takes care of everyone and doesn't have leisure time Sexually active: Yes (polyamorous) Are you practicing safe sex: No Do you think of yourself as: Straight/Heterosexual Current gender identity: Female Dejah/Latter-Day: [place] Special dejah needs: No Agree to transfusion: Yes Female Reproductive History: Para: 1 Spontaneous abortions: Yes (8 + has had 2 stillborn's) Physical Exam Const: COMMON NORMALS: no acute distress, patient oriented x3 and healthy appearing HENMT: COMMON NORMALS: normocephalic and atraumatic HEAD & SCALP: normocephalic and atraumatic Eye: COMMON NORMALS: conjunctivae normal CONJUNCTIVA: Yes conjunctivae normal Neck/C-Spine: COMMON NORMALS: full ROM and supple Chest: COMMONS NORMALS: normal inspection of the chest Resp: COMMON NORMALS: normal respiratory effort, No retractions, No use of accessory muscles and clear to auscultation bilaterally AUSCULTATION: clear to auscultation bilaterally Cardio: COMMON NORMALS: regular rate, regular rhythm and No murmurs present (Cardio) RATE: regular rate RHYTHM: regular rhythm GI: COMMON NORMALS: Normal to inspection, nondistended, normoactive bowel sounds present, Soft to palpation, non-tender and no masses PALPATION: Yes Soft to palpation Extremity: COMMON NORMALS: normal to inspection and full ROM Neuro: COMMON NORMALS: patient oriented x3, moves all extremities and no focal motor deficits Psych: COMMON NORMALS: mental status grossly normal, Normal thought process present and cooperative THOUGHT PROCESS: Normal thought process present Skin: COMMON NORMALS: no rashes or lesions noted and no wounds GENERAL SKIN EXAM: no rashes or lesions noted Course Vital Signs: Vital signs: Vital Signs Temperature 97.9 F 09/19/24 17:46 Pulse Rate 94 09/19/24 18:11 Respiratory Rate 16 09/19/24 17:46 Blood Pressure 111/71 09/19/24 19:08 Pulse Oximetry 95 09/19/24 19:08 Oxygen Delivery Me thod Room Air 09/19/24 19:08 MDM - Nausea/Vomiting/Diarrhea Medical Decision Making Patient presents with vomiting CT scans normal electrolytes are normal she refused to give us a urine sample she felt improved here after meds able to tolerate p.o. will prescribe her Zofran she is follow-up with PCP return if worsening. Medical Records I reviewed the patient's medical records. Lab Data I reviewed the patient's lab results. 09/19/24 18:08 09/19/24 18:08 Radiology Impressions Abdomen/Pelvis CT 09/19/24 17:54 IMPRESSION: No acute intra-abdominal or pelvic process. Laboratory Results WBC 16.90 10^3/uL (3.29-11.43) H 09/19/24 18:08 RBC 5.13 10^6/uL (3.85-5.65) 09/19/24 18:08 Hgb 14.70 g/dL (11.27-16.99) 09/19/24 18:08 Hct 43.4 % (36-47) 09/19/24 18:08 MCV 84.6 fl (85-98) L 09/19/24 18:08 MCH 28.7 pg (27-33) 09/19/24 18:08 MCHC 33.9 g/dL (30-55) 09/19/24 18:08 RDW 12.7 % (12.1-15.1) 09/19/24 18:08 Plt Count 327 10^3/cmm (157-399) 09/19/24 18:08 MPV 10.9 fL (7.4-10.4) H 09/19/24 18:08 Neut % (Auto) 87.3 % 09/19/24 18:08 Lymph % (Auto) 6.9 % 09/19/24 18:08 [place] % (Auto) 4.9 % 09/19/24 18:08 Eos % (Auto) 0.0 % 09/19/24 18:08 Baso % (Auto) 0.5 % 09/19/24 18:08 Neut # (Auto) 14.77 10^3/uL (1.8-7.7) H 09/19/24 18:08 Lymph # (Auto) 1.2 10^3/uL (0.8-4.8) 09/19/24 18:08 [place] # (Auto) 0.8 10^3/uL (0.2-0.9) 09/19/24 18:08 Eos # (Auto) 0.0 10^3/uL (0.0-0.8) 09/19/24 18:08 Baso # (Auto) 0.1 10^3/uL (0.0-0.1) 09/19/24 18:08 Nucleated RBC % (auto) 0 % 09/19/24 18:08 Nucleated RBCs # 0.0 /100WBC 09/19/24 18:08 Sodium 140 mmol/L (136-145) 09/19/24 18:08 Potassium 4.0 mmol/L (3.5-5.1) 09/19/24 18:08 Chloride 103 mmol/L (98-107) 09/19/24 18:08 Carbon Dioxide 21 mmol/L (22-29) L 09/19/24 18:08 Anion Gap 20.0 (5-19) H 09/19/24 18:08 BUN 14 mg/dL (6-20) 09/19/24 18:08 Creatinine 0.8 mg/dL (0.5-0.9) 09/19/24 18:08 GFR Calculation 81.2 mL/min (90-130) L 09/19/24 18:08 Glucose 144 mg/dL (65-115) H 09/19/24 18:08 Calculated Osmolality 293 mOsm/kg (285-295) 09/19/24 18:08 Calcium 9.4 mg/dL (8.5-10.5) 09/19/24 18:08 Total Bilirubin 0.8 mg/dL (0.15-1.2) 09/19/24 18:08 AST 17 U/L (0-32) 09/19/24 18:08 ALT 16 U/L (0-33) 09/19/24 18:08 Alkaline Phosphatase 41 U/L (35-105) 09/19/24 18:08 Total Protein 7.4 g/dL (6.6-8.7) 09/19/24 18:08 Albumin 4.3 g/dL (3.5-5.2) 09/19/24 18:08 Globulin 3.1 g/dL (1.3-4.6) 09/19/24 18:08 Lipase 13 U/L (13-60) 09/19/24 18:08 HCG, Qual Negative (Negative) 09/19/24 18:08 All radiology interpretation(s) finalized by discharge Discharge Plan Discharge Patient Disposition: Home Clinical Impression: Vomiting Qualifiers: Vomiting type: unspecified Nausea presence: with nausea Qualified Code(s): R11.2 - Nausea with vomiting, unspecified Condition: Stable Prescriptions: New ondansetron 4 mg tablet,disintegrating 4 mg PO Q6H PRN (Reason: nausea and vomiting) Qty: 14 0RF No Action propranolol 10 mg tablet See Rx Instructions PO TID PRN (Reason: anxiety) 30 Days Qty: 90 2RF Rx Instructions: 10mg tablet BID, can take additional 10mg at noon on PRN basis. Zoloft 50 mg tablet 50 mg PO DAILY PRN (Reason: Anxiety) Qty: 30 1RF zolpidem 5 mg tablet 5 mg PO .qhs 30 Days Qty: 30 1RF Discharge Orders: Discharge ED (Routine); Ordered 09/19/24 Ordered By: Jane Mitchell Referrals: Everardo Baez MD [Primary Care Provider, [facility]] Discharge Diet: Advance as tolerated Discharge Activity: Resume usual activity Patient Instructions: Acute Nausea and Vomiting (ED) Print Language: Ukrainian Coding Level of Care Code ED Technology Architect for Dillon Carter
[2024-09-19 18:30] LABS: Basophils # 0.1 10^3/uL (0.0-0.1); Basophils % 0.5 %; Hematocrit 43.4 % (36-47); Lymphocytes # 1.2 10^3/uL (0.8-4.8); Lymphocytes % 6.9 %; Mean Corpuscular HGB Conc 33.9 g/dL (30-55); Mean Corpuscular Hemoglobin 28.7 pg (27-33); Mean Corpuscular Volume 84.6 fl (85-98); Mean Platelet Volume 10.9 fL (7.4-10.4); Monocytes # 0.8 10^3/uL (0.2-0.9); Monocytes % 4.9 %; Neutrophils # 14.77 10^3/uL (1.8-7.7); Neutrophils % 87.3 %; Nucleated Red Blood Cells % 0 %; Platelet Count 327 10^3/cmm (157-399); Red Blood Count 5.13 10^6/uL (3.85-5.65); Red Cell Distribution Width 12.7 % (12.1-15.1)
[2024-09-19 18:41] LABS: HCG, Serum Qual Negative (Negative)
[2024-09-19] MEDS: iohexol 350 mg/mL 500 mL Btl (per mL) IV (18:48)
[2024-09-19 18:53] LABS: Alanine Aminotransferase 16 U/L (0-33); Albumin Level 4.3 g/dL (3.5-5.2); Alkaline Phosphatase 41 U/L (35-105); Aspartate Amino Transferase 17 U/L (0-32); Blood Urea Nitrogen 14 mg/dL (6-20); Calcium 9.4 mg/dL (8.5-10.5); Carbon Dioxide 21 mmol/L (22-29); Chloride 103 mmol/L (98-107); Creatinine Clr Calc Pharmacy 119.0975; Globulin 3.1 g/dL (1.3-4.6); Glomerular Filtration Rate 81.2 mL/min (90-130); Glucose 144 mg/dL (65-115); Lipase 13 U/L (13-60); Osmolality Calculated 293 mOsm/kg (285-295); Sodium 140 mmol/L (136-145); Total Bilirubin 0.8 mg/dL (0.15-1.2); Total Protein 7.4 g/dL (6.6-8.7)
[2024-09-19 19:08] VITALS: BP 111/71; O2SAT 95
[2024-09-19 20:00] VITALS: BP 126/83; PULSE 105; O2SAT 97
== END 2024-09-19 20:00 | disposition home or self-care (01) ==
PROVIDERS: Emergency Provider Emergency Medicine; PCP Family Medicine
DX: R11.2 Nausea with vomiting, unspecified (principal); Z87.891 Personal history of nicotine dependence
CPT/HCPCS: 74177; 80053; 83690; 84703; 85025; 96374; 96375; 99285; J1200; J2765

== ENCOUNTER 2024-09-21 07:54 | Emergency (ER) | payer MEDICAID, SELFPAY ==
[2022-12-11 16:44] VITALS: BP 140/90; BMI 35.1
[2024-09-21 07:56] VITALS: BP 128/78; PULSE 91; RESP 16; TEMP 36.9; O2SAT 97; BMI 35.0
[2024-09-21] MEDS: LORazepam 1 MG/0.5 ML injection 2 MG IVP (08:18)
[2024-09-21] MEDS: haloperidol inj 5 mg/mL INJ 1 mL 2.5 MG IVP (08:18)
[2024-09-21] MEDS: sodium chloride 0.9% 1,000 ML 999 ML IV (08:18)
[2024-09-21 08:19] LABS: Basophils # 0.1 10^3/uL (0.0-0.1); Basophils % 0.4 %; Lymphocytes # 2.1 10^3/uL (0.8-4.8); Lymphocytes % 15.4 %; Mean Corpuscular HGB Conc 34.3 g/dL (30-55); Mean Corpuscular Hemoglobin 28.5 pg (27-33); Mean Corpuscular Volume 82.9 fl (85-98); Mean Platelet Volume 10.6 fL (7.4-10.4); Neutrophils # 10.48 10^3/uL (1.8-7.7); Neutrophils % 76.9 %; Nucleated Red Blood Cells % 0 %; Platelet Count 394 10^3/cmm (157-399); Red Blood Count 5.55 10^6/uL (3.85-5.65); Red Cell Distribution Width 12.7 % (12.1-15.1); White Blood Count 13.62 10^3/uL (3.29-11.43)
--- NOTE | 2024-09-21 08:29 | ED_ITS ---
HPI - Nausea/Vomiting/Diarrhea 2 General: Chief complaint: Nausea/Vomiting/Diarrhea Stated complaint: N/V x3 days Time Seen by Provider: 09/21/24 08:02 History of Present Illness: 34-year-old female presents emergency ro om complaining of persistent nausea vomiting. She describes diffuse crampy abdominal pain. She was seen 2 days ago at that time her CT and her lab work did not show significant abnormalities she declined to provide a urine sample. She has not noticed anything that exacerbates or relieves it. 2 days ago her urine was negative she that she has an implanted she monitors closely she does not believe there is a chance that she is . She denies hematochezia melena hematemesis coffee- ground emesis no dysuria urgency or frequency no history of kidney stones. No chest pain no shortness of breath no fever sweats or chills. Patient does use marijuana regularly has not for the last couple of days. Associated nausea: Yes Associated symtoms: Reports nausea; Denies chest pain or dysuria Related Data Previous Rx's ?Medication ?Instructions ?Recorded propranolol 10 mg tablet See Rx Instructions PO TID P RN 08/16/24 anxiety 30 days #90 tabs sertraline 50 mg tablet (Zoloft) 50 mg PO DAILY PRN An xiety #30 tabs 08/16/24 zolpidem 5 mg tablet 5 mg PO .qhs 30 days #30 tab s 08/16/24 ondansetron 4 mg disintegrating 4 mg PO Q6H PRN nausea and 09/19/24 tablet vomiting #14 tabs lorazepam 2 mg tablet (Ativan) 2 mg buccal Q6H PRN [place] sea and 09/21/24 vomiting #14 tabs olanzapine 10 mg disintegrating 10 mg PO Q6H PRN nause a and 09/21/24 tablet vomiting #14 tabs Allergies Allergy/AdvReac Type Severity Reaction Status Date / Time No Known Allergies Allergy Verified 08/16/24 14:46 Review of Systems 2 Const: Denies: fever(s) or chills Card: Denies: chest pain Resp: Denies: dyspnea GI: Reports: abdominal pain, nausea and vomiting : Denies: dysuria, urinary frequency or urinary urgency Musc: Denies: neck pain or back pain Skin/Breast: Denies: rash PFSH ED 2 PFSH: Medical History Obesity (BMI 35.0-39.9 without comorbidity) Chronic post-traumatic stress disorder (PTSD) Psychiatric care Insomnia Acute viral syndrome Dental abscess MARTA (generalized anxiety disorder) Surgical History History of tympanostomy tube placement Hx of wisdom tooth extraction Hx of hemorrhoidectomy 04/02/23 Dr Hill Exam under anesthesia, excision of hemorrhoids and perianal skin tag Family History Other CAD (coronary artery disease) Cancer Diabetes MARTA (generalized anxiety disorder) Hypertension Psychiatric illness Social History Smoking and tobacco/nicotine status: current every day tobacco/nicotine user (marijuana) Quit status (tobacco/nicotine): has quit using Year quit tobacco: 2016 Former quit date comment: 1PY Second hand smoke exposure: No Alcohol intake: current Alcohol intake frequency: holidays/special occasions only Substance/Drug Use: former Former substance use 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 Adopted: No Caregiver/support person: No Lives independently: Yes Household members: children Housing: Manufactured/Mobile home Marital status: Marital status details: 2013 Number of children: 1 Number of grandchildren: 0 Highest education level completed: Some College, No Degree service: No Current occupational status: disabled Pets and animals: Yes Pets & animals: cat(s), dog(s) and farm animals Farm Animals: chicken/turkey/other poultry Leisure activites: other Leisure activities details: takes care of everyone and doesn't have leisure time Sexually active: Yes (polyamorous) Are you practicing safe sex: No Do you think of yourself as: Straight/Heterosexual Current gender identity: Female Dejah/Sabianist: Zach Special dejah needs: No Agree to transfusion: Yes Female Reproductive History: Date of last menstrual period: 09/21/24 Para: 1 Spontaneous abortions: Yes (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 had 2 stillborn's) Physical Exam 2 Const: ORIENTATION/CONSCIOUSNESS: Yes awake, Yes oriented to person, Yes oriented to place and Yes oriented to time HENMT: COMMON NORMALS: normocephalic, atraumatic and hearing grossly normal bilaterally HEAD & SCALP: normocephalic and atraumatic Resp: COMMON NORMALS: normal respiratory effort, No retractions, No use of accessory muscles and clear to auscultation bilaterally AUSCULTATION: clear to auscultation bilaterally Cardio: COMMON NORMALS: regular rate, regular rhythm and No murmurs present (Cardio) RATE: regular rate RHYTHM: regular rhythm GI: COMMON NORMALS: No hepatosplenomegaly present AUSCULTATION: Yes normoactive bowel sounds PALPATION: Yes Tenderness to palpation present (GI) (Diffuse mild tenderness), No Guarding due to palpation present (GI) and Yes No hepatosplenomegaly present Extremity: COMMON NORMALS: normal to inspection, capillary refill normal, no clubbing, cyanosis or edema, no calf tenderness and no pedal edema Neuro: SENSORIUM/ORIENTATION: Yes oriented to person, Yes oriented to place and Yes oriented to time Skin: COMMON NORMALS: no rashes or lesions noted GENERAL SKIN EXAM: no rashes or lesions noted Course 2 Vital Signs: Vital signs: Vital Signs Temperature 98.4 F 09/21/24 07:56 Pulse Rate 98 09/21/24 11:19 Respiratory Rate 16 09/21/24 11:19 Blood Pressure 93/52 09/21/24 11:19 Pulse Oximetry 95 09/21/24 11:19 Oxygen Delivery Me thod Room Air 09/21/24 11:13 MDM - Nausea/Vomiting/Diarrhea Medical Decision Making Symptoms improved with medications including Haldol Ativan and IV fluids. Discussed with the patient at length this likely related to THC use discussed different things she can do to try and decrease symptoms. Given prescription for olanzapine and Ativan to use as needed Medical Records I reviewed the patient's medical records. Lab Data I reviewed the patient's lab results. 09/21/24 08:09 09/21/24 08:09 Laboratory Results WBC 13.62 10^3/uL (3.29-11.43) H 09/21/24 08:09 RBC 5.55 10^6/uL (3.85-5.65) 09/21/24 08:09 Hgb 15.80 g/dL (11.27-16.99) 09/21/24 08:09 Hct 46.0 % (36-47) 09/21/24 08:09 MCV 82.9 fl (85-98) L 09/21/24 08:09 MCH 28.5 pg (27-33) 09/21/24 08:09 MCHC 34.3 g/dL (30-55) 09/21/24 08:09 RDW 12.7 % (12.1-15.1) 09/21/24 08:09 Plt Count 394 10^3/cmm (157-399) 09/21/24 08:09 MPV 10.6 fL (7.4-10.4) H 09/21/24 08:09 Neut % (Auto) 76.9 % 09/21/24 08:09 Lymph % (Auto) 15.4 % 09/21/24 08:09 [place] % (Auto) 7.0 % 09/21/24 08:09 Eos % (Auto) 0.0 % 09/21/24 08:09 Baso % (Auto) 0.4 % 09/21/24 08:09 Neut # (Auto) 10.48 10^3/uL (1.8-7.7) H 09/21/24 08:09 Lymph # (Auto) 2.1 10^3/uL (0.8-4.8) 09/21/24 08:09 [place] # (Auto) 1.0 10^3/uL (0.2-0.9) H 09/21/24 08:09 Eos # (Auto) 0.0 10^3/uL (0.0-0.8) 09/21/24 08:09 Baso # (Auto) 0.1 10^3/uL (0.0-0.1) 09/21/24 08:09 Nucleated RBC % (auto) 0 % 09/21/24 08:09 Nucleated RBCs # 0.0 /100WBC 09/21/24 08:09 Sodium 136 mmol/L (136-145) 09/21/24 08:09 Potassium 3.4 mmol/L (3.5-5.1) L 09/21/24 08:09 Chloride 96 mmol/L (98-107) L 09/21/24 08:09 Carbon Dioxide 21 mmol/L (22-29) L 09/21/24 08:09 Anion Gap 22.4 (5-19) H 09/21/24 08:09 BUN 14 mg/dL (6-20) 09/21/24 08:09 Creatinine 0.9 mg/dL (0.5-0.9) 09/21/24 08:09 GFR Calculation 70.8 mL/min (90-130) L 09/21/24 08:09 Glucose 96 mg/dL (65-115) 09/21/24 08:09 Calculated Osmolality 282 mOsm/kg (285-295) L 09/21/24 08:09 Calcium 9.9 mg/dL (8.5-10.5) 09/21/24 08:09 Total Bilirubin 1.1 mg/dL (0.15-1.2) 09/21/24 08:09 AST 21 U/L (0-32) 09/21/24 08:09 ALT 18 U/L (0-33) 09/21/24 08:09 Alkaline Phosphatase 45 U/L (35-105) 09/21/24 08:09 Total Protein 8.4 g/dL (6.6-8.7) 09/21/24 08:09 Albumin 4.6 g/dL (3.5-5.2) 09/21/24 08:09 Globulin 3.8 g/dL (1.3-4.6) 09/21/24 08:09 Lipase 17 U/L (13-60) 09/21/24 08:09 HCG, Qual Negative (Negative) 09/21/24 08:09 Urine Color Dark yellow (Yellow) A 09/21/24 09:49 Urine Appearance Clear (CLEAR) 09/21/24 09:49 Urine pH 6.0 (5-7) 09/21/24 09:49 Ur Specific [place] 1.035 (1.005-1.030) H 09/21/24 09:49 Urine Protein 1+ (Negative) A 09/21/24 09:49 Urine Glucose (UA) Negative (Normal) 09/21/24 09:49 Urine Ketones 3+ (Negative) H 09/21/24 09:49 Urine Blood Non-haemolysed trace (Negative) 09/21/24 09:49 Urine Nitrate Negative (Negative) 09/21/24 09:49 Urine Bilirubin Negative (Negative) 09/21/24 09:49 Urine Urobilinogen 1.0 mg/dL (Negative) 09/21/24 09:49 Ur Leukocyte Esterase Trace (Negative) A 09/21/24 09:49 Urine RBC 0-2 /hpf (0-2) 09/21/24 09:49 Urine WBC 0-5 /hpf (0-5) 09/21/24 09:49 Ur Squamous Epith Cells 6-10 /hpf (0-5) 09/21/24 09:49 Amorphous Sediment Not Reportable 09/21/24 09:49 Urine Bacteria 1+ /hpf (NONE) H 09/21/24 09:49 Hyaline Casts 4.52 /lpf 09/21/24 09:49 No radiology studies performed this visit Discharge Plan Discharge Patient Disposition: Home Clinical Impression: Cannabinoid hyperemesis syndrome Condition: Stable Prescriptions: New lorazepam [Ativan] 2 mg tablet 2 mg buccal Q6H PRN (Reason: nausea and vomiting) Qty: 14 0RF olanzapine 10 mg tablet,disintegrating 10 mg PO Q6H PRN (Reason: nausea and vomiting) Qty: 14 0RF No Action propranolol 10 mg tablet See Rx Instructions PO TID PRN (Reason: anxiety) 30 Days Qty: 90 2RF Rx Instructions: 10mg tablet BID, can take additional 10mg at noon on PRN basis. Zoloft 50 mg tablet 50 mg PO DAILY PRN (Reason: Anxiety) Qty: 30 1RF zolpidem 5 mg tablet 5 mg PO .qhs 30 Days Qty: 30 1RF ondansetron 4 mg tablet,disintegrating 4 mg PO Q6H PRN (Reason: nausea and vomiting) Qty: 14 0RF Discharge Orders: Discharge ED (Routine); Ordered 09/21/24 Ordered By: Harinder Crowley Referrals: Everardo Baez MD [Primary Care Provider, Family Practice] Discharge Diet: Usual diet Discharge Activity: Resume usual activity Patient Instructions: Opioid Safety, Pain Management Activity Restrictions/Additional Instructions: Thank you for choosing [facility] for your healthcare needs today. It is very important that you follow up as instructed or that you return to the Emergency Department should you have concerns or if your condition changes or worsens in any way. You are seen emergency room with persistent nausea and vomiting. It did respond well to medications given. As we discussed this is likely related to the use of THC products. Recommend decreasing the use or abstaining completely. Also as we discussed the edible and vape forms of THC products are more likely to cause these symptoms. If you choose to stop THC product use completely it may be a few weeks before the symptoms completely resolve but they should slowly improve during that timeframe. Print Language: Latvian Coding Level of Care Code ED Associate Director Regulatory Affairs for Dillon Carter
[2024-09-21 08:43] LABS: HCG, Serum Qual Negative (Negative)
[2024-09-21 08:55] LABS: Alanine Aminotransferase 18 U/L (0-33); Albumin Level 4.6 g/dL (3.5-5.2); Alkaline Phosphatase 45 U/L (35-105); Anion Gap 22.4 (5-19); Aspartate Amino Transferase 21 U/L (0-32); Blood Urea Nitrogen 14 mg/dL (6-20); Calcium 9.9 mg/dL (8.5-10.5); Carbon Dioxide 21 mmol/L (22-29); Chloride 96 mmol/L (98-107); Creatinine Clr Calc Pharmacy 105.8645; Globulin 3.8 g/dL (1.3-4.6); Glomerular Filtration Rate 70.8 mL/min (90-130); Glucose 96 mg/dL (65-115); Lipase 17 U/L (13-60); Osmolality Calculated 282 mOsm/kg (285-295); Potassium 3.4 mmol/L (3.5-5.1); Sodium 136 mmol/L (136-145); Total Bilirubin 1.1 mg/dL (0.15-1.2); Total Protein 8.4 g/dL (6.6-8.7)
[2024-09-21 09:59] LABS: Bilirubin Urine Negative (Negative); Blood Urine Non-haemolysed trace (Negative); Glucose Urine UA Negative (Normal); Ketones Urine 3+ (Negative); Leukocyte Esterase Urine Trace (Negative); Nitrate Urine Negative (Negative); Protein Urine 1+ (Negative); Urine Appearance Clear (CLEAR); Urine Color Dark Yellow (Yellow)
[2024-09-21 10:02] LABS: Add Urine Microscopic? YES; Bacteria Urine 1+ /hpf; Hyaline Casts Urine 4.52 /lpf; RBC Urine 0-2 /hpf (0-2); WBC Urine 0-5 /hpf (0-5)
[2024-09-21 10:10] VITALS: BP 123/61; PULSE 91; RESP 16; O2SAT 97
[2024-09-21 10:17] LABS: Specific Gravity, Urine 1.035 (1.005-1.030)
[2024-09-21 10:18] LABS: Add Urine Culture? No
[2024-09-21 11:13] VITALS: BP 93/52; PULSE 98; RESP 16; O2SAT 96
[2024-09-21 11:19] VITALS: BP 93/52; PULSE 98; RESP 16; O2SAT 95
== END 2024-09-21 11:29 | disposition home or self-care (01) ==
PROVIDERS: Emergency Provider Family Medicine; PCP Family Medicine
DX: R11.2 Nausea with vomiting, unspecified (principal); Z87.891 Personal history of nicotine dependence; F12.188 Cannabis abuse with other cannabis-induced disorder
CPT/HCPCS: 80053; 81001; 83690; 84703; 85025; 96361; 96374; 96375; 99284; J1630; J2060; J7030

== ENCOUNTER → 2024-09-27 11:24 | Outpatient (BNVA) | payer MEDICAID, SELFPAY ==
[2022-12-11 16:44] VITALS: BP 140/90; BMI 35.1
== END ==
PROVIDERS: PCP Family Medicine; Visit Provider Family Medicine
DX: R53.83 Other fatigue (principal)
CPT/HCPCS: 84439; 84443

== ENCOUNTER 2024-10-08 11:58 | Emergency (ER) | payer MEDICAID, SELFPAY ==
[2022-12-11 16:44] VITALS: BP 140/90; BMI 35.1
[2024-10-08 12:03] VITALS: BP 122/82; PULSE 103; RESP 18; TEMP 36.6; O2SAT 97; BMI 34.4
[2024-10-08] MEDS: haloperidol inj 5 mg/mL INJ 1 mL IVP (12:53)
[2024-10-08] MEDS: LORazepam 1 MG/0.5 ML injection 2 MG IVP (12:53)
[2024-10-08] MEDS: sodium chloride 0.9% 1,000 ML 999 ML IV ×2 (12:53→13:38)
[2024-10-08 12:58] VITALS: BP 123/78; PULSE 87; RESP 16; O2SAT 96
[2024-10-08 12:58] LABS: Basophils # 0.1 10^3/uL (0.0-0.1); Basophils % 0.6 %; Hematocrit 42.9 % (36-47); Lymphocytes # 1.1 10^3/uL (0.8-4.8); Lymphocytes % 12.2 %; Mean Corpuscular HGB Conc 33.6 g/dL (30-55); Mean Corpuscular Hemoglobin 28.6 pg (27-33); Mean Corpuscular Volume 85.1 fl (85-98); Mean Platelet Volume 10.9 fL (7.4-10.4); Monocytes # 0.3 10^3/uL (0.2-0.9); Monocytes % 3.7 %; Neutrophils # 7.42 10^3/uL (1.8-7.7); Neutrophils % 83.3 %; Nucleated Red Blood Cells % 0 %; Platelet Count 297 10^3/cmm (157-399); Red Blood Count 5.04 10^6/uL (3.85-5.65); Red Cell Distribution Width 13.1 % (12.1-15.1); White Blood Count 8.91 10^3/uL (3.29-11.43)
--- NOTE | 2024-10-08 13:01 | ED_ITS ---
HPI - Nausea/Vomiting/Diarrhea 2 General: Chief complaint: Nausea/Vomiting/Diarrhea Stated complaint: n/v Time Seen by Provider: 10/08/24 12:00 History of Present Illness: 34-year-old female presents emergency ro om with persistent nausea and vomiting. She has had similar episodes in the past related to cannabinoid hyperemesis syndrome. She denies any fever sweats chills dysuria urgency or frequency she has been constipated she denies any hematochezia melena hematemesis. No chest pain or shortness of breath Associated symtoms: Denies chest pain or dysuria Related Data Previous Rx's ?Medication ?Instructions ?Recorded ondansetron 4 mg disintegrating 4 mg PO Q6H PRN nausea and 09/19/24 tablet vomiting #14 tabs lorazepam 2 mg tablet (Ativan) 2 mg buccal Q6H PRN [place] and 09/21/24 vomiting #14 tabs olanzapine 10 mg disintegrating 10 mg PO Q6H PRN nause a and 09/21/24 tablet vomiting #14 tabs propranolol 10 mg tablet 10 mg PO TID PRN anxiety #18 0 tabs 09/27/24 sertraline 50 mg tablet (Zoloft) 50 mg PO DAILY PRN An xiety #90 tabs 09/27/24 zolpidem 5 mg tablet 5 mg PO .qhs 30 days #30 tab s 09/27/24 lorazepam 2 mg tablet (Ativan) 2 mg buccal Q6H PRN [place] and 10/08/24 vomiting #14 tabs olanzapine 10 mg disintegrating 10 mg PO DAILY nausea and 10/08/24 tablet vomitting 7 days #14 tabs Allergies Allergy/AdvReac Type Severity Reaction Status Date / Time No Known Allergies Allergy Verified 09/27/24 10:32 Review of Systems 2 Const: Denies: fever(s) or chills Card: Denies: chest pain Resp: Denies: dyspnea GI: Denies: abdominal pain : Denies: dysuria, urinary frequency or urinary urgency Musc: Denies: neck pain or back pain Skin/Breast: Denies: rash PFSH ED 2 PFSH: Medical History Obesity (BMI 35.0-39.9 without comorbidity) Chronic post-traumatic stress disorder (PTSD) Psychiatric care Insomnia Acute viral syndrome Dental abscess MARTA (generalized anxiety disorder) Surgical History History of tympanostomy tube placement Hx of wisdom tooth extraction Hx of hemorrhoidectomy 04/02/23 Dr Hill Exam under anesthesia, excision of hemorrhoids and perianal skin tag Family History Other CAD (coronary artery disease) Cancer Diabetes MARTA (generalized anxiety disorder) Hypertension Psychiatric illness Social History Smoking and tobacco/nicotine status: current every day tobacco/nicotine user Quit status (tobacco/nicotine): has quit using Year quit tobacco: 2016 Former quit date comment: 1PY Second hand smoke exposure: No Alcohol intake: current Alcohol intake frequency: holidays/special occasions only Substance/Drug Use: former Former substance use 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 Adopted: No Caregiver/support person: No Lives independently: Yes Household members: children Housing: Manufactured/Mobile home Marital status: Marital status details: 2013 Number of children: 1 Number of grandchildren: 0 Highest education level completed: Some College, No Degree service: No Current occupational status: disabled Pets and animals: Yes Pets & animals: cat(s), dog(s) and farm animals Farm Animals: chicken/turkey/other poultry Leisure activites: other Leisure activities details: takes care of everyone and doesn't have leisure time Sexually active: Yes (polyamorous) Are you practicing safe sex: No Do you think of yourself as: Straight/Heterosexual Current gender identity: Female Dejah/Bahai: Serrano Special dejah needs: No Agree to transfusion: Yes Female Reproductive History: Para: 1 Spontaneous abortions: Yes (8 + has had 2 stillborn's) Physical Exam 2 Const: GENERAL APPEARANCE: cooperative ORIENTATION/CONSCIOUSNESS: Yes awake, Yes oriented to person, Yes oriented to place and Yes oriented to time HENMT: COMMON NORMALS: normocephalic, atraumatic and hearing grossly normal bilaterally HEAD & SCALP: normocephalic and atraumatic Resp: COMMON NORMALS: normal respiratory effort, No retractions, No use of accessory muscles and clear to auscultation bilaterally AUSCULTATION: clear to auscultation bilaterally Cardio: COMMON NORMALS: regular rate, regular rhythm and No murmurs present (Cardio) RATE: regular rate RHYTHM: regular rhythm GI: COMMON NORMALS: Soft to palpation and No hepatosplenomegaly present A USCULTATION: Yes normoactive bowel sounds PALPATION: Yes Soft to palpation, No Tenderness to palpation present (GI), No Guarding due to palpation present (GI) and Yes No hepatosplenomegaly present Extremity: COMMON NORMALS: normal to inspection, capillary refill normal, no clubbing, cyanosis or edema, no calf tenderness and no pedal edema Neuro: SENSORIUM/ORIENTATION: Yes oriented to person, Yes oriented to place and Yes oriented to time Skin: COMMON NORMALS: no rashes or lesions noted GENERAL SKIN EXAM: no rashes or lesions noted Course 2 Vital Signs: Vital signs: Vital Signs Temperature 97.8 F 10/08/24 12:03 Pulse Rate 101 H 10/08/24 14:19 Respiratory Rate 14 10/08/24 14:19 Blood Pressure 148/93 10/08/24 14:19 Pulse Oximetry 92 10/08/24 14:19 Oxygen Delivery Me thod Room Air 10/08/24 14:00 MDM - Nausea/Vomiting/Diarrhea Medical Decision Making Improved with Ativan and Haldol. Suspect this is her hyperemesis cannabinoid again. Will discharge home with olanzapine to use sublingual Ativan to use buccal and have her follow-up with her primary care doctor strong discouraged continued use of THC products Medical Records I reviewed the patient's medical records. Lab Data I reviewed the patient's lab results. 10/08/24 12:36 10/08/24 12:36 Laboratory Results WBC 8.91 10^3/uL (3.29-11.43) 10/08/24 12:36 RBC 5.04 10^6/uL (3.85-5.65) 10/08/24 12:36 Hgb 14.40 g/dL (11.27-16.99) 10/08/24 12:36 Hct 42.9 % (36-47) 10/08/24 12:36 MCV 85.1 fl (85-98) 10/08/24 12:36 MCH 28.6 pg (27-33) 10/08/24 12:36 MCHC 33.6 g/dL (30-55) 10/08/24 12:36 RDW 13.1 % (12.1-15.1) 10/08/24 12:36 Plt Count 297 10^3/cmm (157-399) 10/08/24 12:36 MPV 10.9 fL (7.4-10.4) H 10/08/24 12:36 Neut % (Auto) 83.3 % 10/08/24 12:36 Lymph % (Auto) 12.2 % 10/08/24 12:36 [place] % (Auto) 3.7 % 10/08/24 12:36 Eos % (Auto) 0.0 % 10/08/24 12:36 Baso % (Auto) 0.6 % 10/08/24 12:36 Neut # (Auto) 7.42 10^3/uL (1.8-7.7) 10/08/24 12:36 Lymph # (Auto) 1.1 10^3/uL (0.8-4.8) 10/08/24 12:36 [place] # (Auto) 0.3 10^3/uL (0.2-0.9) 10/08/24 12:36 Eos # (Auto) 0.0 10^3/uL (0.0-0.8) 10/08/24 12:36 Baso # (Auto) 0.1 10^3/uL (0.0-0.1) 10/08/24 12:36 Nucleated RBC % (auto) 0 % 10/08/24 12:36 Nucleated RBCs # 0.0 /100WBC 10/08/24 12:36 Sodium 141 mmol/L (136-145) 10/08/24 12:36 Potassium 4.0 mmol/L (3.5-5.1) 10/08/24 12:36 Chloride 106 mmol/L (98-107) 10/08/24 12:36 Carbon Dioxide 21 mmol/L (22-29) L 10/08/24 12:36 Anion Gap 18.0 (5-19) 10/08/24 12:36 BUN 6 mg/dL (6-20) 10/08/24 12:36 Creatinine 0.8 mg/dL (0.5-0.9) 10/08/24 12:36 GFR Calculation 81.2 mL/min (90-130) L 10/08/24 12:36 Glucose 125 mg/dL (65-115) H 10/08/24 12:36 Calculated Osmolality 291 mOsm/kg (285-295) 10/08/24 12:36 Calcium 9.2 mg/dL (8.5-10.5) 10/08/24 12:36 Total Bilirubin 0.6 mg/dL (0.15-1.2) 10/08/24 12:36 AST 13 U/L (0-32) 10/08/24 12:36 ALT 17 U/L (0-33) 10/08/24 12:36 Alkaline Phosphatase 37 U/L (35-105) 10/08/24 12:36 Total Protein 6.9 g/dL (6.6-8.7) 10/08/24 12:36 Albumin 4.0 g/dL (3.5-5.2) 10/08/24 12:36 Globulin 2.9 g/dL (1.3-4.6) 10/08/24 12:36 Lipase 17 U/L (13-60) 10/08/24 12:36 HCG, Qual Negative (Negative) 10/08/24 12:36 No radiology studies performed this visit Discharge Plan Discharge Patient Disposition: Home Clinical Impression: Cannabinoid hyperemesis syndrome Condition: Stable Prescriptions: New lorazepam [Ativan] 2 mg tablet 2 mg buccal Q6H PRN (Reason: nausea and vomiting) Qty: 14 0RF olanzapine 10 mg tablet,disintegrating 10 mg PO DAILY 7 Days Qty: 14 0RF No Action Zoloft 50 mg tablet 50 mg PO DAILY PRN (Reason: Anxiety) Qty: 90 1RF propranolol 10 mg tablet 10 mg PO TID PRN (Reason: anxiety) Qty: 180 1RF zolpidem 5 mg tablet 5 mg PO .qhs 30 Days Qty: 30 1RF ondansetron 4 mg tablet,disintegrating 4 mg PO Q6H PRN (Reason: nausea and vomiting) Qty: 14 0RF lorazepam [Ativan] 2 mg tablet 2 mg buccal Q6H PRN (Reason: nausea and vomiting) Qty: 14 0RF olanzapine 10 mg tablet,disintegrating 10 mg PO Q6H PRN (Reason: nausea and vomiting) Qty: 14 0RF Discharge Orders: Discharge ED (Routine); Ordered 10/08/24 Ordered By: Harinder Crowley Referrals: Everardo Baez MD [Primary Care Provider, Family Practice] Discharge Diet: Clear Liquid Discharge Activity: Increase activity as tolerated Patient Instructions: Opioid Safety, Pain Management Activity Restrictions/Additional Instructions: [facility]. It is very important that you follow up as instructed or that you return to the Emergency Department should you have concerns or if your condition changes or worsens in any way. Print Language: Swazi Coding Level of Care Code ED Cigar Packer And Picker for Dillon Carter
[2024-10-08 13:15] LABS: HCG, Serum Qual Negative (Negative)
[2024-10-08 13:18] LABS: Alanine Aminotransferase 17 U/L (0-33); Alkaline Phosphatase 37 U/L (35-105); Aspartate Amino Transferase 13 U/L (0-32); Blood Urea Nitrogen 6 mg/dL (6-20); Calcium 9.2 mg/dL (8.5-10.5); Carbon Dioxide 21 mmol/L (22-29); Chloride 106 mmol/L (98-107); Creatinine Clr Calc Pharmacy 117.9833; Globulin 2.9 g/dL (1.3-4.6); Glomerular Filtration Rate 81.2 mL/min (90-130); Glucose 125 mg/dL (65-115); Osmolality Calculated 291 mOsm/kg (285-295); Sodium 141 mmol/L (136-145); Total Bilirubin 0.6 mg/dL (0.15-1.2); Total Protein 6.9 g/dL (6.6-8.7)
[2024-10-08 13:34] LABS: Lipase 17 U/L (13-60)
[2024-10-08 13:46] VITALS: BP 135/87; PULSE 101; RESP 16; O2SAT 97
[2024-10-08 14:00] VITALS: BP 138/85; PULSE 107; RESP 14; O2SAT 98
[2024-10-08 14:19] VITALS: BP 148/93; PULSE 101; RESP 14; O2SAT 92
== END 2024-10-08 14:20 | disposition home or self-care (01) ==
PROVIDERS: Emergency Provider Family Medicine; PCP Family Medicine
DX: R11.2 Nausea with vomiting, unspecified (principal); Z87.891 Personal history of nicotine dependence
CPT/HCPCS: 36415; 80053; 83690; 84703; 85025; 96361; 96374; 96375; 99284; J1630; J2060; J7030

== ENCOUNTER 2024-10-10 11:02 | Emergency (ER) | payer MEDICAID, SELFPAY ==
[2022-12-11 16:44] VITALS: BP 140/90; BMI 35.1
[2024-10-10] VITALS (8 sets, daily range): BP systolic 112–141; BP diastolic 72–94; PULSE 76–90; RESP 16; TEMP 36.8; O2SAT 94–99
--- NOTE | 2024-10-10 11:17 | XRR_ITS ---
PROCEDURE INFORMATION: Exam: XR Abdomen Exam date and time: 10/10/2024 12:16 PM Age: 34 years old Clinical indication: Abdominal pain; N/v TECHNIQUE: Imaging protocol: Radiologic exam of the abdomen. Views: 2 Views. Upright and supine views. COMPARISON: CT abdomen pelvis w con* [id number] 09/19/2024 6:45 PM FINDINGS: Lungs: Lungs are clear. Heart/Mediastinum: Normal heart size. Gastrointestinal tract: Normal. No bowel dilation. Intraperitoneal space: Normal. No free air. Bones/joints: Unremarkable for age. XR/XR acute abdomen series [id number] IMPRESSION: No acute findings.
[2024-10-10] MEDS: ondansetron 2 mg/ML SDV 2 mL 4 MG IVP (11:28)
[2024-10-10 11:30] LABS: Basophils # 0.1 10^3/uL (0.0-0.1); Basophils % 0.8 %; Eosinophils % 0.2 %; Hematocrit 42.2 % (36-47); Lymphocytes # 1.8 10^3/uL (0.8-4.8); Lymphocytes % 16.9 %; Mean Corpuscular HGB Conc 34.1 g/dL (30-55); Mean Corpuscular Hemoglobin 28.5 pg (27-33); Mean Corpuscular Volume 83.4 fl (85-98); Mean Platelet Volume 10.1 fL (7.4-10.4); Monocytes # 0.8 10^3/uL (0.2-0.9); Monocytes % 7.5 %; Neutrophils # 7.98 10^3/uL (1.8-7.7); Neutrophils % 74.4 %; Nucleated Red Blood Cells % 0 %; Platelet Count 323 10^3/cmm (157-399); Red Blood Count 5.06 10^6/uL (3.85-5.65); Red Cell Distribution Width 13.3 % (12.1-15.1); White Blood Count 10.72 10^3/uL (3.29-11.43)
[2024-10-10] MEDS: sodium chloride 0.9% 1,000 ML 999 ML IV (11:30)
--- NOTE | 2024-10-10 11:32 | PC.NURSE ---
This nurse asked pt for urine sample, pt states she can't go at this time but will try later.
[2024-10-10 11:41] LABS: HCG, Serum Qual Negative (Negative)
[2024-10-10 11:47] LABS: Alanine Aminotransferase 19 U/L (0-33); Alkaline Phosphatase 38 U/L (35-105); Anion Gap 14.1 (5-19); Aspartate Amino Transferase 15 U/L (0-32); Blood Urea Nitrogen 10 mg/dL (6-20); Carbon Dioxide 23 mmol/L (22-29); Chloride 107 mmol/L (98-107); Glomerular Filtration Rate 94.7 mL/min (90-130); Glucose 105 mg/dL (65-115); Lipase 19 U/L (13-60); Osmolality Calculated 291 mOsm/kg (285-295); Potassium 3.1 mmol/L (3.5-5.1); Sodium 141 mmol/L (136-145); Total Bilirubin 0.9 mg/dL (0.15-1.2)
[2024-10-10] MEDS: prochlorperazine 10 mg/2 mL Inj 5 MG IVP (12:58)
--- NOTE | 2024-10-10 13:41 | ED_ITS ---
HPI - Nausea/Vomiting/Diarrhea 2 General: Chief complaint: Nausea/Vomiting/Diarrhea Stated complaint: N/V Time Seen by Provider: 10/10/24 11:04 History of Present Illness: This patient is a 34-year-old white female who presents to the emergency department stating that she has had nausea and vomiting for the past several days. She is feeling lethargic and weak. She has been constipated. She states her last bowel movement was small and it was 7 days ago. She has not had a fever. Patient does present frequently with the same symptoms. Her past medical history includes depression and anxiety. No past surgical history. Associated nausea: Yes Associated symtoms: Reports nausea Related Data Previous Rx's ?Medication ?Instructions ?Recorded ondansetron 4 mg disintegrating 4 mg PO Q6H PRN nausea and 09/19/24 tablet vomiting #14 tabs lorazepam 2 mg tablet (Ativan) 2 mg buccal Q6H PRN [place] and 09/21/24 vomiting #14 tabs olanzapine 10 mg disintegrating 10 mg PO Q6H PRN nause a and 09/21/24 tablet vomiting #14 tabs propranolol 10 mg tablet 10 mg PO TID PRN anxiety #18 0 tabs 09/27/24 sertraline 50 mg tablet (Zoloft) 50 mg PO DAILY PRN An xiety #90 tabs 09/27/24 zolpidem 5 mg tablet 5 mg PO .qhs 30 days #30 tab s 09/27/24 lorazepam 2 mg tablet (Ativan) 2 mg buccal Q6H PRN [place] and 10/08/24 vomiting #14 tabs olanzapine 10 mg disintegrating 10 mg PO DAILY nausea and 10/08/24 tablet vomitting 7 days #14 tabs dicyclomine 20 mg tablet 20 mg PO QID PRN abdominal p ain 10/10/24 #20 tabs prochlorperazine maleate 10 mg 10 mg PO QID PRN nausea and 10/10/24 tablet (Compazine) vomiting #20 tabs Allergies Allergy/AdvReac Type Severity Reaction Status Date / Time No Known Allergies Allergy Verified 09/27/24 10:32 Review of Systems 2 General: Reports: 10 or more systems reviewed and unremarkable except in HPI and below GI: Reports: abdominal pain, nausea, vomiting and constipation PFSH ED 2 PFSH: Medical History Obesity (BMI 35.0-39.9 without comorbidity) Chronic post-traumatic stress disorder (PTSD) Psychiatric care Insomnia Acute viral syndrome Dental abscess MARTA (generalized anxiety disorder) Surgical History History of tympanostomy tube placement Hx of wisdom tooth extraction Hx of hemorrhoidectomy 04/02/23 Dr Hill Exam under anesthesia, excision of hemorrhoids and perianal skin tag Family History Other CAD (coronary artery disease) Cancer Diabetes MARTA (generalized anxiety disorder) Hypertension Psychiatric illness Social History Smoking and tobacco/nicotine status: current every day tobacco/nicotine user Quit status (tobacco/nicotine): has quit using Year quit tobacco: 2016 Former quit date comment: 1PY Second hand smoke exposure: No Alcohol intake: current Alcohol intake frequency: holidays/special occasions only Substance/Drug Use: former Former substance use 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 Adopted: No Caregiver/support person: No Lives independently: Yes Household members: children Housing: Manufactured/Mobile home Marital status: Marital status details: 2013 Number of children: 1 Number of grandchildren: 0 Highest education level completed: Some College, No Degree service: No Current occupational status: disabled Pets and animals: Yes Pets & animals: cat(s), dog(s) and farm animals Farm Animals: chicken/turkey/other poultry Leisure activites: other Leisure activities details: takes care of everyone and doesn't have leisure time Sexually active: Yes (polyamorous) Are you practicing safe sex: No Do you think of yourself as: Straight/Heterosexual Current gender identity: Female Dejah/Hoahaoism: Zach Special dejah needs: No Agree to transfusion: Yes Female Reproductive History: Para: 1 Spontaneous abortions: Yes (8 + has had 2 stillborn's) Physical Exam 2 Const: COMMON NORMALS: no acute distress, patient oriented x3 and no limitations GENERAL APPEARANCE: cooperative and comfortable HENMT: COMMON NORMALS: normocephalic, atraumatic, Normal nasal mucous membranes and turbinates present, moist oral mucous membranes and oropharynx normal HEAD & SCALP: normal to inspection, normocephalic and atraumatic F RENETTA & SINUS: normal facial exam NOSE: Normal nasal mucous membranes and turbinates present Eye: COMMON NORMALS: Equal, round and reactive pupils present, EOMs intact bilaterally and conjunctivae normal GENERAL EYE: appearance normal, both eyes and all related structures CONJUNCTIVA: Yes conjunctivae normal PUPIL: Yes Equal, round and reactive pupils present Neck/C-Spine: COMMON NORMALS: supple and no JVD Chest: COMMONS NORMALS: normal inspection of the chest Resp: COMMON NORMALS: normal respiratory effort and clear to auscultation bilaterally AUSCULTATION: clear to auscultation bilaterally Cardio: COMMON NORMALS: no JVD, regular rate, regular rhythm, No gallops present (Cardio), No murmurs present (Cardio) and No rub (Cardio) RATE: r egular rate RHYTHM: regular rhythm GI: COMMON NORMALS: Normal to inspection, nondistended, normoactive bowel sounds present, Soft to palpation and non-tender AUSCULTATION: Yes normoactive bowel sounds PALPATION: Yes Soft to palpation : COMMON NORMALS: Yes no CVA tenderness BLADDER/KIDNEY EXAM: Yes no CVA tenderness Back/Pelvis: COMMON NORMALS: no CVA tenderness and thoracic and lumbar spine normal to inspection Extremity: COMMON NORMALS: normal to inspection Neuro: COMMON NORMALS: patient oriented x3 and CN's II-XII intact bilaterally Psych: COMMON NORMALS: mental status grossly normal, Normal thought process present and cooperative THOUGHT PROCESS: Normal thought process present Skin: COMMON NORMALS: no rashes or lesions noted, turgor normal and no jaundice GENERAL SKIN EXAM: no rashes or lesions noted and turgor normal Course 2 Vital Signs: Vital signs: Vital Signs Temperature 98.2 F 10/10/24 11:05 Pulse Rate 86 10/10/24 13:00 Respiratory Rate 16 10/10/24 11:05 Blood Pressure 123/89 10/10/24 13:00 Pulse Oximetry 98 10/10/24 13:00 Oxygen Delivery Me thod Room Air 10/10/24 13:00 MDM - Nausea/Vomiting/Diarrhea Medical Decision Making Abdominal flatplate and upright films were normal. CBC normal. CMP revealed a potassium of 3.1. Lipase 19. test negative. Patient was initially given a 1 L bolus of normal saline and 4 mg of Zofran. She continued to complain of nausea. We then tried 5 mg of Compazine IV. Continued to complain of nausea. We then administered Haldol, Benadryl and Ativan IM. Patient was discharged in stable condition. I did prescribe Compazine and Bentyl. This appears to be a chronic problem for the patient. I recommended she follow-up with her primary care provider for ongoing management. She may need referral to GI. I would also recommend having her psychiatrist review her medications to see if they could be contributing to her symptoms. Lab Data 10/10/24 11:22 10/10/24 11:22 Radiology Impressions Chest/Abdomen X-ray 10/10/24 11:17 IMPRESSION: No acute findings. Laboratory Results WBC 10.72 10^3/uL (3.29-11.43) 10/10/24 11:22 RBC 5.06 10^6/uL (3.85-5.65) 10/10/24 11:22 Hgb 14.40 g/dL (11.27-16.99) 10/10/24 11:22 Hct 42.2 % (36-47) 10/10/24 11:22 MCV 83.4 fl (85-98) L 10/10/24 11:22 MCH 28.5 pg (27-33) 10/10/24 11:22 MCHC 34.1 g/dL (30-55) 10/10/24 11:22 RDW 13.3 % (12.1-15.1) 10/10/24 11:22 Plt Count 323 10^3/cmm (157-399) 10/10/24 11:22 MPV 10.1 fL (7.4-10.4) 10/10/24 11:22 Neut % (Auto) 74.4 % 10/10/24 11:22 Lymph % (Auto) 16.9 % 10/10/24 11:22 [place] % (Auto) 7.5 % 10/10/24 11:22 Eos % (Auto) 0.2 % 10/10/24 11:22 Baso % (Auto) 0.8 % 10/10/24 11:22 Neut # (Auto) 7.98 10^3/uL (1.8-7.7) H 10/10/24 11:22 Lymph # (Auto) 1.8 10^3/uL (0.8-4.8) 10/10/24 11:22 [place] # (Auto) 0.8 10^3/uL (0.2-0.9) 10/10/24 11:22 Eos # (Auto) 0.0 10^3/uL (0.0-0.8) 10/10/24 11:22 Baso # (Auto) 0.1 10^3/uL (0.0-0.1) 10/10/24 11:22 Nucleated RBC % (auto) 0 % 10/10/24 11:22 Nucleated RBCs # 0.0 /100WBC 10/10/24 11:22 Sodium 141 mmol/L (136-145) 10/10/24 11:22 Potassium 3.1 mmol/L (3.5-5.1) L 10/10/24 11:22 Chloride 107 mmol/L (98-107) 10/10/24 11:22 Carbon Dioxide 23 mmol/L (22-29) 10/10/24 11:22 Anion Gap 14.1 (5-19) 10/10/24 11:22 BUN 10 mg/dL (6-20) 10/10/24 11:22 Creatinine 0.7 mg/dL (0.5-0.9) 10/10/24 11:22 GFR Calculation 94.7 mL/min (90-130) 10/10/24 11:22 Glucose 105 mg/dL (65-115) 10/10/24 11:22 Calculated Osmolality 291 mOsm/kg (285-295) 10/10/24 11:22 Calcium 9.0 mg/dL (8.5-10.5) 10/10/24 11:22 Total Bilirubin 0.9 mg/dL (0.15-1.2) 10/10/24 11:22 AST 15 U/L (0-32) 10/10/24 11:22 ALT 19 U/L (0-33) 10/10/24 11:22 Alkaline Phosphatase 38 U/L (35-105) 10/10/24 11:22 Total Protein 7.0 g/dL (6.6-8.7) 10/10/24 11:22 Albumin 4.0 g/dL (3.5-5.2) 10/10/24 11:22 Globulin 3.0 g/dL (1.3-4.6) 10/10/24 11:22 Lipase 19 U/L (13-60) 10/10/24 11:22 HCG, Qual Negative (Negative) 10/10/24 11:22 All radiology interpretation(s) finalized by discharge Discharge Plan Discharge Patient Disposition: Home Clinical Impression: Chronic nausea Condition: Stable Prescriptions: New dicyclomine 20 mg tablet 20 mg PO QID PRN (Reason: abdominal pain) Qty: 20 0RF prochlorperazine maleate [Compazine] 10 mg tablet 10 mg PO QID PRN (Reason: nausea and vomiting) Qty: 20 0RF No Action Zoloft 50 mg tablet 50 mg PO DAILY PRN (Reason: Anxiety) Qty: 90 1RF propranolol 10 mg tablet 10 mg PO TID PRN (Reason: anxiety) Qty: 180 1RF zolpidem 5 mg tablet 5 mg PO .qhs 30 Days Qty: 30 1RF ondansetron 4 mg tablet,disintegrating 4 mg PO Q6H PRN (Reason: nausea and vomiting) Qty: 14 0RF lorazepam [Ativan] 2 mg tablet 2 mg buccal Q6H PRN (Reason: nausea and vomiting) Qty: 14 0RF olanzapine 10 mg tablet,disintegrating 10 mg PO Q6H PRN (Reason: nausea and vomiting) Qty: 14 0RF lorazepam [Ativan] 2 mg tablet 2 mg buccal Q6H PRN (Reason: nausea and vomiting) Qty: 14 0RF olanzapine 10 mg tablet,disintegrating 10 mg PO DAILY 7 Days Qty: 14 0RF Discharge Orders: Discharge ED (Routine); Ordered 10/10/24 Ordered By: Herber Fiore Referrals: Everardo Baez MD [Primary Care Provider, Family Practice] Patient Instructions: Acute Nausea and Vomiting (ED) Activity Restrictions/Additional Instructions: Try the Bentyl and Compazine. Follow-up with your primary care provider later this week for recheck. If no improvement you may need referral to GI. Also discuss medications with your psychiatrist. Print Language: Cuban Coding Level of Care Code ED Legal Editor for Dillon Carter
[2024-10-10] MEDS: diphenhydrAMINE 50 mg/mL SDV 1mL IM (14:01)
[2024-10-10] MEDS: LORazepam 1 MG/0.5 ML injection 2 MG IM (14:01)
[2024-10-10] MEDS: haloperidol inj 5 mg/mL INJ 1 mL IM (14:02)
== END 2024-10-10 14:41 | disposition home or self-care (01) ==
PROVIDERS: Emergency Provider Emergency Medicine; PCP Family Medicine
DX: R11.0 Nausea (principal); Z87.891 Personal history of nicotine dependence
CPT/HCPCS: 36415; 74022; 80053; 83690; 84703; 85025; 96361; 96372; 96374; 96375; 99284; J0780; J1200; J1630; J2060; J2405; J7030